=== PATIENT | male | born 1980 | race African-American/Black ===

== ENCOUNTER 2025-04-17 12:10 | Inpatient (IN) | payer OTHER, SELFPAY ==
[2025-04-17] VITALS (16 sets, daily range): BP systolic 119–146; BP diastolic 65–88; PULSE 96–109; RESP 12–18; TEMP 36.6–37.2; O2SAT 98–100; BMI 18.3
--- NOTE | ~2025-04-17 | XR_ITS ---
CHEST RADIOGRAPH CLINICAL HISTORY: DKA NAUSEA AND WEAKNESS NOTED . COMPARISON: None available TECHNIQUE: Single portable view of the chest. FINDINGS The cardiomediastinal silhouette is unremarkable. The lungs are clear. IMPRESSION: No focal infiltrate or effusion. Reviewed, dictated and finalized at location A.
--- NOTE | ~2025-04-17 | XR_ITS ---
XR foot LT 2V Ordering provider: Erica Bautista APRN History: . swelling to left toe . Comparison: None. FINDINGS: BONES: Destructive changes in the base of the distal phalanx of the left big toe which is suggestive of osteomyelitis. Clinical correlation advised. Sclerotic changes seen in the proximal phalanx of the fourth toe which also may indicate osteomyelitis. Further evaluation advised. JOINT SPACES: Narrowing of the interphalangeal joint of the big toe. No tarsal coalition. SOFT TISSUES: Soft tissue swelling over the distal phalanx of the left big toe. IMPRESSION: Osteomyelitis of the base of the distal phalanx of the big toe with fracture. Clinical correlation ad vised. Sclerotic changes in the proximal phalanx of the fourth toe which may indicate osteomyelitis. Narrowing of the interphalangeal joint of the first toe.. Reviewed, dictated and finalized at location A. IMPRESSION: Osteomyelitis of the base of the distal phalanx of the big toe with fracture. C linical correlation advised. Sclerotic changes in the proximal phalanx of the fourth toe which may indicate osteomyelitis. Narrowing of the interphalangeal joint of the first toe..
--- NOTE | ~2025-04-17 | MR_ITS ---
MRI of the left foot CLINICAL HISTORY: Possible osteomyelitis of the first and fourth toes. TECHNIQUE: Axial proton-density and proton-density fat-sat images, sagittal T1-weighted and STIR imag es, and coronal T1-weighted and proton-density fat-sat images were performed. FINDINGS: There is a transverse fracture of the proximal portion of the distal phalanx of the great t oe. There is surrounding marrow edema, as well as extensive marrow edema of the proximal phalanx of t he great toe. T1 marrow signal the proximal phalanx is relatively preserved. There is some mild hypoi ntense T1 signal in the distal phalanx. Remaining osseous structures and bone marrow signals are otherwise unremarkable remainder the visuali zed foot. Remaining joint spaces are intact. Collateral ligaments at the remaining joint spaces are i ntact. Flexor and extensor tendons are intact. No intermetatarsal bursitis or Anderson's neuroma evident. No o ther soft tissue mass or fluid collection seen. There are small joint effusion at the interphalangeal joint of the first toe. IMPRESSION: Transverse fracture the proximal portion of the distal phalanx of the great toe. Possible superimposed septic arthritis of the interphalangeal joint of the great toe with associated osteomyelitis of the proximal and distal phalanges. Correlate for posttraumatic joint effusion and gonzalez ne contusions. Correlate clinically for signs/symptoms of infection. Reviewed, dictated and finalized at [facility]. IMPRESSION: Transverse fracture the proximal portion of the distal phalanx of the great toe . Possible superimposed septic arthritis of the interphalangeal joint of the grea t toe with associated osteomyelitis of the proximal and distal phalanges. Corre late for posttraumatic joint effusion and bone contusions. Correlate clinically for signs/symptoms of infection.
--- NOTE | ~2025-04-17 | CT_ITS ---
Clinical Indication: DKA, fever, cough CT Scan of the Chest, Abdomen, and Pelvis without Contrast: Technique: Contiguous sections were acquired throughout the chest, abdomen, and pelvis without IV con trast administration. Dose reduction technique was used on this scan by utilizing automated exposure control and iterative reconstruction technique. The dose-length product (DLP) was 334.90 mGy-cm. Findings: There is no evidence of any significant mediastinal, hilar or axillary lymphadenopathy. The mediastin al soft tissues appear normal. There is no evidence of pleural or pericardial effusion. The lungs are clear. No pulmonary nodules or infiltrates are noted. The liver, spleen, gallbladder, adrenals and kidneys are within normal limits. Extensive pancreatic c alcifications compatible chronic pancreatitis. No evidence of aortic aneurysm. No lymphadenopathy. Questionable mild wall thickening of large bowel, especially at the distal descending colon. No bowel obstruction. No abscess or free air. Urinary bladder is unremarkable. No pelvic mass seen. No ascites. Impression: Questionable infectious/inflammatory colitis, especially the distal descending colon. Correlate clini olman. Chronic pancreatitis. Reviewed, dictated and finalized at [facility]. Impression: Questionable infectious/inflammatory colitis, especially the distal descending colon. Correlate clinically. Chronic pancreatitis.
--- NOTE | 2025-04-17 12:22 | ECG_ITS ---
Test Date: 2025-04-17 15:41:49 Measurements Intervals [place] Rate: 107 P: 76 [place]: 168 QRS: 55 QRSD: 85 T: 53 QT: 331 QTc: 443 Interpretive Statements SINUS TACHYCARDIA NONSPECIFIC T-WAVE ABNORMALITY No previous ECG available for comparison Electronically Signed On 04-18-2025 11:09:30 CDT by Ra Chapman M.D.
[2025-04-17 12:24] LABS: Glucose Point of Care > 500 mg/dl (65-105)
[2025-04-17 12:32] LABS: Basophils Absolute Auto 0.1 K/mm3 (0.0-0.1); Basophils Percent Auto 0.9 % (0.2-1.2); Eosinophils Absolute Auto 0.1 K/mm3 (0-0.3); Eosinophils Percent Auto 0.7 % (0-4.4); Hematocrit 35.1 % (42.0-52.0); Hemoglobin 11.1 g/dL (14.0-18.0); Immature Granulocyte Absolute 0.08 K/mm3 (0.00-0.031); Immature Granulocyte Percent A 0.7 % (0-0.5); Lymphocytes Absolute Auto 1.71 K/mm3 (0.9-3.2); Lymphocytes Percent Auto 14.4 % (18.3-44.2); Mean Corpuscular HGB Conc 31.6 g/dl (32-36); Mean Corpuscular Hemoglobin 29.7 pg (26-34); Mean Corpuscular Volume 93.9 fl (80-100); Mean Platelet Volume 9.4 fl (7.4-10.4); Monocytes Absolute Auto 0.8 K/mm3 (0.1-0.6); Monocytes Percent Auto 6.3 % (2.6-8.5); Neutrophils Absolute Auto 9.2 K/mm3 (1.3-6.7); Platelet Count Result 261 k/mm3 (150-375); Red Blood Count 3.74 M/mm3 (4.6-6.20); Red Cell Distribution Width 11.9 % (11.5-14.5); White Blood Count 11.9 K/mm3 (4.5-10.0)
[2025-04-17 12:40] LABS: Fractional Inspired Oxygen 21 %; HCO3 VBG 10.6 mEq/l (24.0-30.0); PO2 VBG 40.4 mmHg (35.0-45.0)
[2025-04-17 12:42] LABS: Device ROOM AIR; pH VBG 7.197 (7.300-7.400)
[2025-04-17 12:53] LABS: Alanine Aminotransferase 30 U/L (6-50); Albumin Level 4.9 g/dL (3.5-5.1); Alkaline Phosphatase 125 U/L (38-126); Anion Gap 32 mmol/L (4-12); Aspartate Amino Transferase 46 U/L (17-59); Bilirubin,Total 0.9 mg/dL (0.2-1.3); Blood Urea Nitrogen 30 mg/dL (9-20); Calcium 9.4 mg/dL (8.4-10.2); Carbon Dioxide 8 mmol/L (22-30); Chloride 88 mmol/L (98-107); Estimated Glomerular Filt Rate 33; Glucose 829 mg/dL (65-110); Magnesium 2.4 mg/dL (1.6-2.3); Phosphorus 6.4 mg/dL (2.5-4.5); Potassium 5.4 mmol/L (3.4-5.0); Sodium 128 mmol/L (137-145)
[2025-04-17] MEDS: SODIUM CHLORIDE 0.9% IV 3,000 ML 999 ML IV CONT (12:57)
[2025-04-17] MEDS: ONDANSETRON INJ 4 MG/2 ML VIAL IV PUSH (13:01)
[2025-04-17] MEDS: INSULIN HUMAN REGULAR (*BKC) 100 UNITS/ML 8.8 UNITS IV PUSH (13:09)
[2025-04-17 13:19] LABS: Ethanol < 10 mg/dL (<10)
[2025-04-17 13:29] LABS: Anion Gap 31 mmol/L (4-12); Blood Urea Nitrogen 31 mg/dL (9-20); Calcium 9.8 mg/dL (8.4-10.2); Carbon Dioxide 8 mmol/L (22-30); Chloride 88 mmol/L (98-107); Estimated CRCL calculation 32 ml/min; Estimated Glomerular Filt Rate 32; Glucose 830 mg/dL (65-110); Potassium 5.4 mmol/L (3.4-5.0); Sodium 127 mmol/L (137-145)
--- NOTE | 2025-04-17 13:29 | ED.GENADULT ---
HPI - General Adult General Chief complaint: Recheck/Abnormal Lab/Rx Stated complaint: abd pain, N/V, high BS Time Seen by Provider: 04/17/25 12:14 History of Present Illness HPI narrative: This is a 45-year-old male with history of type 1 diabetes presenting for elevated blood sugars. Patient said that last week he had fevers and a cough. Since then he has felt progressively worsened and his sugars have been up trending. He has been taking his insulin as instructed which is 25 long-acting Lantus night in 22 fast acting with meals. He is currently complaining of weakness, nausea, vomiting, diarrhea and abdominal pain. Related Data Allergies Allergy/AdvReac Type Severity Reaction Status Date / Time No Known Allergies Allergy Verified 04/17/25 12:57 [facility] [place] Past Medical History Medical History (Updated 04/17/25 @ 15:58 by Joe Arenas MD) Type I diabetes mellitus Exam Narrative: APPEARANCE: Patient appears uncomfortable Head: atraumatic. EYES: EOMI, NOSE: Atraumatic NECK: Trachea midline RESPIRATORY: tachypneic,clear to auscultation CARDIOVASCULAR: RRR, no peripheral edema ABDOMINAL: Non-distended soft nontender no guarding rebound MUSCULOSKELETAl: No obvious deformities NEURO: Alert. Moving 4/4 extremities SKIN:: Swelling without erythema or warmth to the left great toe. No breaks in the skin. No foul smell. No evidence of infection. PSYCHIATRIC: Normal affect Course Vital Signs Vital signs: Vital Signs Temperature 98.4 F 04/17/25 12:19 Blood Pressure 119/72 04/17/25 12:19 Pulse Oximetry 100 04/17/25 12:19 Temperature 98.5 F 04/17/25 13:46 Pulse Rate 109 H 04/17/25 12:47 Respiratory Rate 18 04/17/25 12:47 Blood Pressure 121/77 04/17/25 13:46 Pulse Oximetry 100 04/17/25 13:46 Oxygen Delivery Room Air 04/17/25 12:47 Medical Decision Making [facility] Narrative Medical decision making narrative: -Course:45-year-old type 1 diabetic presenting for DKA symptoms. Glucose Anion gap 31. PH 7.197. PH be 11.2. Patient started with 3 L normal saline and placed on 200 cc LR per hour. Initial potassium 5.4. Patient started on insulin drip per the DKA protocol set. Creatinine also elevated at 2.24 although we do not have a baseline. infectious workup: Chest x-ray clear. viral swabs negative. Skin exam normal. UA normal. CT chest abdomen pelvis showed clear lungs. Possibly colitis of the descending colon. Patient does report diarrhea. Started on ceftriaxone/Flagyl. C diff toxin sent. -DDX includes but is not limited to: DKA, viral illness, pneumonia, UTI medication noncompliance Vital Signs Vital Signs: Vital Signs Temperature 98.4 F 04/17/25 12:19 Blood Pressure 119/72 04/17/25 12:19 Pulse Oximetry 100 04/17/25 12:19 Temperature 98.5 F 04/17/25 13:46 Pulse Rate 109 H 04/17/25 12:47 Respiratory Rate 18 04/17/25 12:47 Blood Pressure 121/77 04/17/25 13:46 Pulse Oximetry 100 04/17/25 13:46 Oxygen Delivery Room Air 04/17/25 12:47 Lab Data 04/17/25 12:25 04/17/25 13:00 Labs: Lab Results 04/17/25 04/17/25 04/17/25 Range/Units 12:20 12:25 12:58 WBC 11.9 H (4.5-10.0) K/mm3 RBC 3.74 L (4.6-6.20) M/mm3 Hgb 11.1 L (14.0-18.0) g/dL Hct 35.1 L (42.0-52.0) % MCV 93.9 (80-100) fl MCH 29.7 (26-34) pg MCHC 31.6 L (32-36) g/dl RDW 11.9 (11.5-14.5) % Plt Count 261 (150-375) k/mm3 MPV 9.4 (7.4-10.4) fl Immature Gran % (Auto) 0.7 H (0-0.5) % Neut % (Auto) 77.0 H (45.5-73.1) % Lymph % (Auto) 14.4 L (18.3-44.2) % [place] % (Auto) 6.3 (2.6-8.5) % Eos % (Auto) 0.7 (0-4.4) % Baso % (Auto) 0.9 (0.2-1.2) % Lymph # (Auto) 1.71 (0.9-3.2) K/mm3 [place] # (Auto) 0.8 H (0.1-0.6) K/mm3 Eos # (Auto) 0.1 (0-0.3) K/mm3 Baso # (Auto) 0.1 (0.0-0.1) K/mm3 Abs Immat Gran (auto) 0.08 H (0.00-0.031) K/mm3 Absolute Neuts (auto) 9.2 H (1.3-6.7) K/mm3 Absolute Nucleated RBC 0.000 (0.0-0.012) K/mm3 Nucleated RBC % 0.0 (0.0-0.2) % Sodium 128 L (137-145) mmol/L Potassium 5.4 H (3.4-5.0) mmol/L Chloride 88 L (98-107) mmol/L Carbon Dioxide 8 L (22-30) mmol/L Anion Gap 32 H (4-12) mmol/L BUN 30 H (9-20) mg/dL Creatinine 2.17 H (0.7-1.3) mg/dL Estim Creat Clear Calc Not Reportable Estimated GFR 33 L (59 - ) Glucose 829 H* (65-110) mg/dL POC Capillary Glucose > 500 H* (65-105) mg/dl Hemoglobin A1c (<5.7) % Calcium 9.4 (8.4-10.2) mg/dL Phosphorus 6.4 H (2.5-4.5) mg/dL Magnesium 2.4 H (1.6-2.3) mg/dL Total Bilirubin 0.9 (0.2-1.3) mg/dL AST 46 (17-59) U/L ALT 30 (6-50) U/L Alkaline Phosphatase 125 (38-126) U/L Total Protein 8.0 (6.3-8.2) g/dL Albumin 4.9 (3.5-5.1) g/dL Beta-Hydroxybutyrate/Acetoacetate 11.20 H (0.02-0.27) mmol/L Ethyl Alcohol < 10 (<10) mg/dL Influenza A (RT-PCR) (Negative) Influenza B (RT-PCR) (Negative) RSV (RT-PCR) (Negative) SARS-CoV-2 RNA (RT-PCR) (Negative) 04/17/25 04/17/25 Range/Units 12:59 13:00 WBC (4.5-10.0) K/mm3 RBC (4.6-6.20) M/mm3 Hgb (14.0-18.0) g/dL Hct (42.0-52.0) % MCV (80-100) fl MCH (26-34) pg MCHC (32-36) g/dl RDW (11.5-14.5) % Plt Count (150-375) k/mm3 MPV (7.4-10.4) fl Immature Gran % (Auto) (0-0.5) % Neut % (Auto) (45.5-73.1) % Lymph % (Auto) (18.3-44.2) % [place] % (Auto) (2.6-8.5) % Eos % (Auto) (0-4.4) % Baso % (Auto) (0.2-1.2) % Lymph # (Auto) (0.9-3.2) K/mm3 [place] # (Auto) (0.1-0.6) K/mm3 Eos # (Auto) (0-0.3) K/mm3 Baso # (Auto) (0.0-0.1) K/mm3 Abs Immat Gran (auto) (0.00-0.031) K/mm3 Absolute Neuts (auto) (1.3-6.7) K/mm3 Absolute Nucleated RBC (0.0-0.012) K/mm3 Nucleated RBC % (0.0-0.2) % Sodium 127 L (137-145) mmol/L Potassium 5.4 H (3.4-5.0) mmol/L Chloride 88 L (98-107) mmol/L Carbon Dioxide 8 L (22-30) mmol/L Anion Gap 31 H (4-12) mmol/L BUN 31 H (9-20) mg/dL Creatinine 2.24 H (0.7-1.3) mg/dL Estim Creat Clear Calc 32 Estimated GFR 32 L (59 - ) Glucose 830 H* (65-110) mg/dL POC Capillary Glucose (65-105) mg/dl Hemoglobin A1c 12.4 H (<5.7) % Calcium 9.8 (8.4-10.2) mg/dL Phosphorus (2.5-4.5) mg/dL Magnesium (1.6-2.3) mg/dL Total Bilirubin (0.2-1.3) mg/dL AST (17-59) U/L ALT (6-50) U/L Alkaline Phosphatase (38-126) U/L Total Protein (6.3-8.2) g/dL Albumin (3.5-5.1) g/dL Beta-Hydroxybutyrate/Acetoacetate (0.02-0.27) mmol/L Ethyl Alcohol (<10) mg/dL Influenza A (RT-PCR) Negative (Negative) Influenza B (RT-PCR) Negative (Negative) RSV (RT-PCR) Negative (Negative) SARS-CoV-2 RNA (RT-PCR) Negative (Negative) ABG Data ABG results: 04/17/25 12:38 VBG pH 7.197 L* VBG pCO2 28.0 L* VBG pO2 40.4 VBG HCO3 10.6 L O2 Delivery Device Room air O2 Liters/Min Not Reportable FiO2 21 Critical Care Time Critical Care Time Critical Care Time: Yes Total Critical Care Time: 35 Discharge Plan Discharge Clinical Impression: DKA (diabetic ketoacidosis) Patient Disposition: Still a Patient Condition: Serious Patient Language: Slovenian Follow-up/Referrals: UNKNOWN,DOCTOR [Primary Care Provider] -
[2025-04-17] MEDS: INSULIN HUMAN REGULAR (*BKC) 100 UNITS in SODIUM CHLORIDE 0.9% IV 99 ML 5.5 UNITS IV CONT (13:38)
[2025-04-17 13:47] LABS: Influenza A QL RT-PCR Negative (Negative); Influenza B QL RT-PCR Negative (Negative); RSV RNA, RT-PCR Negative (Negative); SARS-CoV-2 RNA PCR Negative (Negative)
[2025-04-17 13:48] LABS: Hemoglobin A1C 12.4 % (<5.7)
[2025-04-17] MEDS: LACTATED RINGERS 1,000 ML 200 ML IV CONT (13:51)
[2025-04-17 14:39] LABS: Glucose Point of Care 489 mg/dl (65-105)
[2025-04-17 14:52] LABS: Add Urine Microscopic? YES; Appearance Urine Clear (Clear); Bacteria Urine None Seen /hpf; Bilirubin Urine Negative (Negative); Blood Urine Trace (Negative); Color Urine Yellow (Yellow); Glucose Urine UA 3+ mg/dL (Negative); Ketones Urine 3+ mg/dL (Negative); Leukocyte Esterase Ur Negative LEU/UL (Negative); Nitrate Urine Negative (Negative); Non Pathogenic Casts 0-2; Protein Urine Trace mg/dL (Negative); RBC Urine 0-2 /hpf (0-2); Specific Grav Ur 1.022 (1.001-1.035); Squamous Epithelial Cell Urine None Seen /hpf (Few); Urobilinogen Urine 0.2 mg/dL (<2.0); WBC Urine 0-5 /hpf (0-3)
[2025-04-17 14:56] LABS: Anion Gap 26 mmol/L (4-12); Blood Urea Nitrogen 29 mg/dL (9-20); Calcium 8.5 mg/dL (8.4-10.2); Carbon Dioxide 8 mmol/L (22-30); Chloride 100 mmol/L (98-107); Estimated CRCL calculation 38 ml/min; Estimated Glomerular Filt Rate 39; Glucose 598 mg/dL (65-110); Potassium 3.9 mmol/L (3.4-5.0); Sodium 134 mmol/L (137-145)
[2025-04-17 15:06] LABS: Amphetamine Screen Urine Negative (Negative); Barbiturate Screen Urine Negative (Negative); Benzodiazepines Screen Urine Negative (Negative); Cannabinoid Screen Urine Positive (Negative); Cocaine Screen Urine Negative (Negative); Methadone Screen Urine Negative (Negative); Opiate Screen Urine Negative (Negative); Phencyclidine Screen Urine Negative (Negative)
[2025-04-17] MEDS: metroNIDAZOLE 500 MG/ISO 100ML 500 MG/100 ML BAG 100 MG IVPB ×2 (15:26→21:35)
[2025-04-17 15:37] LABS: Glucose Point of Care 461 mg/dl (65-105)
--- NOTE | 2025-04-17 16:28 | PM.IMHP ---
H&P: HPI History of Present Illness Date/Time: 04/17/25 16:28 Chief Complaint: Nausea, Vomiting. Hyperglycemia Narrative: 45 y/o M with PMH of DM1, DKA and chronic pancreatitis Presents here with nausea, vomiting, diarrhea, and hyperglycemia. The patient presents here [facility] EMS on 04/17 for further evaluation of nausea, vomiting, diarrhea, hyperglycemia, and abdominal pain. He reports he initially developed nausea and vomiting 2 days ago, however this was precipitated by general malaise, fevers, and a productive cough (scant, intermittent) for the past 1-2 weeks. Since onset of the symptoms his home glucose measurements have been up trending. He reports compliance with his diabetes regimen: Lantus 18 units subQ HS and has Lispro as a sliding scale. He currently follows with Gerardo BAUER (PCP) for his diabetes care. Patient also reported abdominal pain and diarrhea. He reports this has been ongoing for the past few days. He describes the abdominal pain as left lower quadrant, nonradiating, and is intermittent. Patient also is reporting swelling and pain to his first left toe. Has been ongoing for 1 week. No precipitating trauma. Initial VS at presentation: 98.4? F, HR 109, RR 18, 119/72, and 100% on RA. ED workup showed: WBC 11.9, hemoglobin 11.1, VBG showed a pH of 7.197, sodium 128, potassium 5.4, creatinine 2.17 and GFR 33, initial glucose 829, A1c 12.4%, phosphorus 6.4, magnesium 2.4, beta hydroxy 11.2. CXR showed no focal infiltrate or effusion. CT of the chest/abdomen/pelvis showed questionable infectious/inflammatory colitis especially the distal descending colon, and chronic pancreatitis. Review of Systems Review of Systems: All systems reviewed & are unremarkable except as noted in HPI and below PMFSH Past Medical History Medical History Chronic pancreatitis Type I diabetes mellitus Social History Social History Smoking packs per day: 0.5 Smoking cigarettes per day: 10.0 Smoking status: Current every day smoker Substance use type: does not use Do You Feel Safe in your Home?: Yes Lack of Transportation: No Lack of Food: Sometimes True Current Housing: I Have Housing Concerned About Future Housing: YES Difficulty Paying Gas/Electric Bills: No Difficulty Paying for Meds: No Currently Unemployed: No Education: Decline to Answer Difficulty w/ Childcare or Family Care: No Spiritual care concerns: No Meds Home Medications and Allergies Home Medications ?Medication ?Instructions ?Recorded ?Confirmed ?Type amlodipine 10 mg tablet 10 mg PO DAILY 04/17/25 04/17/25 History atorvastatin 40 mg tablet 40 mg PO HS 04/17/25 04/17/25 History carvedilol 25 mg tablet 25 mg PO BID 04/17/25 04/17/25 History famotidine 20 mg tablet 20 mg PO BID 04/17/25 04/17/25 History gabapentin 100 mg capsule 100 mg PO TID 04/17/25 04/17/25 History insulin glargine 100 unit/mL (3 18 unit subcut HS 04/17/25 04/17/25 History mL) subcutaneous pen (Lantus Solostar U-100 Insulin) insulin lispro 100 unit/mL 1 sliding scale dose subcut TIDWM 04/17/25 04/17/25 History subcutaneous pen (Humalog KwikPen (U-100) Insulin) Allergies Allergy/AdvReac Type Severity Reaction Status Date / Time No Known Allergies Allergy Verified 04/17/25 12:57 Vital Signs Vital Signs - 24 hr 04/17/25 12:19 04/17/25 12:47 04/17/25 13:01 Temperature 98.4 F 98.9 F 98.7 F Pulse Rate 109 H Respiratory Rate 18 Blood Pressure 119/72 133/78 123/65 Pulse Oximetry 100 98 100 Oxygen Delivery Room Air 04/17/25 13:46 04/17/25 14:48 Temperature 98.5 F 97.9 F Pulse Rate 105 H Respiratory Rate 16 Blood Pressure 121/77 129/76 Pulse Oximetry 100 100 Oxygen Delivery Exam Const: General: comfortable and no acute distress Other: , male, ill-appearing HENMT: Face/Nose/Sinus: Normal nares present Mouth: Yes dry mucous membranes Eyes: General: appearance normal, both eyes and all related structures Sclera: sclerae normal Pupils: Equal, round and reactive pupils present EOM: EOMs intact bilaterally Resp: Effort & Inspection: normal respiratory effort Auscultation: clear to auscultation bilaterally Cardio: Rate: regular rate Rhythm: regular rhythm Other: S1-S2 present without murmur, rub, ectopy GI: Other: Abdomen soft, nondistended, nontender. Normoactive bowel sounds in all quadrants. Skin: General skin exam: normal color and no rashes or lesions noted Wounds: no wounds Neuro: Speech: normal speech Motor exam (neuro): 5/5 motor strength present throughout Sensory Exam: normal sensation Other: A&O x4 Extrem: Other: No peripheral edema. Swelling to left greater toe without signs of infection or wound openings/evidence of insect bite. Psych: Mental Status: mental status grossly normal Affect: normal affect Other: Good insight and judgment, very pleasant H&P: Results Labs Labs: Short CBC 04/17/25 Range/Units 12:25 WBC 11.9 H (4.5-10.0) K/mm3 Hgb 11.1 L (14.0-18.0) g/dL Hct 35.1 L (42.0-52.0) % Plt Count 261 (150-375) k/mm3 BMP 04/17/25 04/17/25 04/17/25 12:25 13:00 14:31 Sodium 128 L 127 L 134 L Potassium 5.4 H 5.4 H 3.9 Chloride 88 L 88 L 100 Carbon Dioxide 8 L 8 L 8 L BUN 30 H 31 H 29 H Creatinine 2.17 H 2.24 H 1.90 H Glucose 829 H* 830 H* 598 H* Calcium 9.4 9.8 8.5 Liver Function 04/17/25 Range/Units 12:25 Total Bilirubin 0.9 (0.2-1.3) mg/dL AST 46 (17-59) U/L ALT 30 (6-50) U/L Alkaline Phosphatase 125 (38-126) U/L Albumin 4.9 (3.5-5.1) g/dL Urine 04/17/25 Range/Units 14:31 Urine Color Yellow (Yellow) Urine Appearance Clear (Clear) Urine pH 5.0 (5.0-9.0) Ur Specific [place] 1.022 (1.001-1.035) Urine Protein Trace (Negative) mg/dL Urine Glucose (UA) 3+ H (Negative) mg/dL Assessment and Plan Assessment and plan (1) DKA (diabetic ketoacidosis): Qualifiers: Diabetes mellitus complication detail: without coma Diabetes mellitus type: type 1 Qualified Code(s): E10.10 - Type 1 diabetes mellitus with ketoacidosis without coma Code(s): E11.10 - Type 2 diabetes mellitus with ketoacidosis without coma Status: Acute Assessment and Plan: - history of type 1 diabetes - initial glucose 829, verified 830 - labs: K 5.4 (repeat 3.9), A1c 12.4%, beta hydroxy 11.2, VBG showed a pH of 7.197 - trend BMP Q4H, repeat Mag and Phos - DKA protocol initiated - IV fluids: given 3L in ED. Now on 150 mL/hr of NS. Monitor I&Os. - insulin gtt currently running at 5 u/hr - NPO with ice chips - hold home medications - nurses' association counselor consulted - roll scale worker consulted - rubbish collection supervisor consulted (2) Type I diabetes mellitus: Qualifiers: Diabetes mellitus complication detail: without coma Diabetes mellitus complication status: with ketoacidosis Qualified Code(s): E10.10 - Type 1 diabetes mellitus with ketoacidosis without coma Code(s): E10.9 - Type 1 diabetes mellitus without complications Status: Chronic Assessment and Plan: - see above, currently complicated by DKA (3) ROM (acute kidney injury): Code(s): N17.9 - Acute kidney failure, unspecified Status: Acute Assessment and Plan: - creatinine 2.17 and GFR 33, no previous available for comparison. However no history of CKD. - suspect kidney injury secondary to hypovolemia. Has improved to 1.53 with IV fluids. - trend renal function - trend electrolytes, correct as needed (4) Colitis: Code(s): K52.9 - Noninfective gastroenteritis and colitis, unspecified Status: Acute Assessment and Plan: - CT chest/abdomen/pelvis: Questionable infectious/inflammatory colitis, especially the distal descending colon. Correlate clinically. Chronic pancreatitis. - check c. diff, stool culture, and lipase - started on ceftriaxone and Flagyl on 04/17 (5) Toe pain, left: Code(s): M79.675 - Pain in left toe(s) Status: Acute Assessment and Plan: - reporting will left greater toe pain x1 week. Denies history of gout. Denies precipitating trauma. - obtained foot XR - high suspicion for gout Plan Patient reporting mild headache this evening, will treat with 1 time dose of Compazine and IV Benadryl. Not candidate for Toradol as he has an ROM. Has been receiving IV fluids. Diet: NPO with ice chips GI Prophylaxis: pantoprazole AV DVT Prophylaxis: SCDs IV fluids: NS at 150 mL/hour Lines/Tubes: peripheral IV Code Status: full code Quality VTE Prophylaxis VTE prophylaxis: mechanical ordered Critical Care Time: I personally spent 35 minutes of direct patient care including (but not limited to) the physical examination, decision-making, bedside evaluation, review of medical records, review of labs and imaging, discussion with nursing staff and other providers for collaborative, critical care management of this patient. Hospitalist [facility] Advance Care Plan I have confirmed that the patient's Advanced Care Plan is present, code status is documented, or surrogate decision maker is listed in patient medical record.: Yes Medication Reconciliation I have utilized all available resources to obtain, update and review the patients current medications (includes all prescriptions, OTC, herbals, cannabis, and nutritional supplements).: Yes
--- NOTE | 2025-04-17 16:37 | PC.NURSE ---
This patient, Isauro Celeste, was admitted to Intensive Care Unit-9. Patient/family oriented to hospital policies and general routines including ID bracelet, bed and alarms, visiting hours, pain management, procedures, bathroom and other care routines, personal items, smoking policy, room service/diet, and visiting hours. Information on how to activate the Rapid Response Team has been discussed. Patient/Family are encouraged to report perceived risks to care and to ask questions if they do not understand what they are told or what they should do.
[2025-04-17 16:48] LABS: Glucose Point of Care 353 mg/dl (65-105)
[2025-04-17] MEDS: SODIUM CHLORIDE 0.9% IV 1,000 ML 150 ML IV CONT (16:48)
[2025-04-17 17:37] LABS: Glucose Point of Care 297 mg/dl (65-105)
[2025-04-17 18:40] LABS: Glucose Point of Care 219 mg/dl (65-105)
[2025-04-17] MEDS: KCL 20 MEQ/D5/0.45% SOD CHL 1,000 ML 150 ML IV CONT (18:41)
[2025-04-17 19:21] LABS: Glucose Point of Care 198 mg/dl (65-105)
[2025-04-17 20:02] LABS: Anion Gap 13 mmol/L (4-12); Blood Urea Nitrogen 26 mg/dL (9-20); Calcium 8.8 mg/dL (8.4-10.2); Carbon Dioxide 19 mmol/L (22-30); Chloride 106 mmol/L (98-107); Estimated CRCL calculation 50 ml/min; Estimated Glomerular Filt Rate 50; Glucose 187 mg/dL (65-110); Lipase 826 U/L (23-300); Phosphorus 3.3 mg/dL (2.5-4.5); Sodium 138 mmol/L (137-145)
[2025-04-17 20:13] LABS: MRSA (PCR) NOT DETECTED (NOT DETECTE)
[2025-04-17 20:23] LABS: Glucose Point of Care 166 mg/dl (65-105)
[2025-04-17 21:24] LABS: Glucose Point of Care 165 mg/dl (65-105)
[2025-04-17] MEDS: carvediloL 25 MG TABLET PO (21:34)
[2025-04-17] MEDS: ATORVASTATIN 40 MG TABLET PO (21:34)
[2025-04-17] MEDS: ACETAMINOPHEN 325 MG TABLET 650 MG PO (21:34)
[2025-04-17] MEDS: diphenhydrAMINE HCl INJ 50 MG/ML VIAL 25 MG IV PUSH (21:35)
[2025-04-17] MEDS: PROCHLORPERAZINE EDISYLATE 10 MG/2 ML VIAL IV PUSH (21:35)
[2025-04-17 22:28] LABS: Glucose Point of Care 122 mg/dl (65-105)
[2025-04-17 23:37] LABS: Glucose Point of Care 113 mg/dl (65-105)
[2025-04-17 23:46] LABS: Anion Gap 7 mmol/L (4-12); Blood Urea Nitrogen 24 mg/dL (9-20); Calcium 8.5 mg/dL (8.4-10.2); Carbon Dioxide 21 mmol/L (22-30); Chloride 107 mmol/L (98-107); Estimated CRCL calculation 56 ml/min; Estimated Glomerular Filt Rate 57; Glucose 110 mg/dL (65-110); Potassium 3.9 mmol/L (3.4-5.0); Sodium 135 mmol/L (137-145)
[2025-04-18] VITALS (12 sets, daily range): BP systolic 112–149; BP diastolic 72–93; PULSE 84–93; RESP 12–18; TEMP 36.2–37.1; O2SAT 100; BMI 18.3
[2025-04-18] MEDS: INSULIN GLARGINE (*BKC) 100 UNITS/ML 17 UNITS SUB-Q ×2 (00:15→21:17)
[2025-04-18 00:22] LABS: Glucose Point of Care 108 mg/dl (65-105)
[2025-04-18] MEDS: CEFEPIME 2 GM/NS 50 ML 2 GM/50 ML BAG IVPB ×3 (00:52→21:02)
[2025-04-18 01:28] LABS: Glucose Point of Care 121 mg/dl (65-105)
[2025-04-18] MEDS: VANCOMYCIN 1,500 MG/NS 500 ML 1,500 MG/500 ML BAG 250 MG IVPB (01:30)
[2025-04-18 03:54] LABS: Basophils Absolute Auto 0.1 K/mm3 (0.0-0.1); Basophils Percent Auto 0.6 % (0.2-1.2); Eosinophils Absolute Auto 0.3 K/mm3 (0-0.3); Hematocrit 27.9 % (42.0-52.0); Immature Granulocyte Absolute 0.05 K/mm3 (0.00-0.031); Immature Granulocyte Percent A 0.4 % (0-0.5); Lymphocytes Absolute Auto 2.95 K/mm3 (0.9-3.2); Lymphocytes Percent Auto 23.5 % (18.3-44.2); Mean Corpuscular HGB Conc 32.3 g/dl (32-36); Mean Corpuscular Hemoglobin 29.8 pg (26-34); Mean Corpuscular Volume 92.4 fl (80-100); Monocytes Absolute Auto 0.9 K/mm3 (0.1-0.6); Monocytes Percent Auto 7.4 % (2.6-8.5); Neutrophils Absolute Auto 8.3 K/mm3 (1.3-6.7); Neutrophils Percent Auto 66.1 % (45.5-73.1); Platelet Count Result 205 k/mm3 (150-375); Red Blood Count 3.02 M/mm3 (4.6-6.20); White Blood Count 12.6 K/mm3 (4.5-10.0)
[2025-04-18 04:03] LABS: Lipase 421 U/L (23-300)
[2025-04-18 04:05] LABS: Alanine Aminotransferase 17 U/L (6-50); Albumin Level 3.5 g/dL (3.5-5.1); Alkaline Phosphatase 74 U/L (38-126); Anion Gap 10 mmol/L (4-12); Aspartate Amino Transferase 24 U/L (17-59); Bilirubin,Total 0.5 mg/dL (0.2-1.3); Blood Urea Nitrogen 22 mg/dL (9-20); Calcium 8.6 mg/dL (8.4-10.2); Carbon Dioxide 19 mmol/L (22-30); Chloride 108 mmol/L (98-107); Estimated CRCL calculation 57 ml/min; Estimated Glomerular Filt Rate 59; Glucose 95 mg/dL (65-110); Sodium 137 mmol/L (137-145)
[2025-04-18 04:06] LABS: Phosphorus 3.1 mg/dL (2.5-4.5)
[2025-04-18] MEDS: metroNIDAZOLE 500 MG/ISO 100ML 500 MG/100 ML BAG 100 MG IVPB ×3 (06:43→21:59)
[2025-04-18 07:11] LABS: Glucose Point of Care 98 mg/dl (65-105)
--- NOTE | 2025-04-18 09:11 | P.CONIN_ITS ---
Assessment and Plan Assessment and plan (1) DKA (diabetic ketoacidosis): Qualifiers: Diabetes mellitus complication detail: without coma Diabetes mellitus type: type 1 Qualified Code(s): E10.10 - Type 1 diabetes mellitus with ketoacidosis without coma Code(s): E11.10 - Type 2 diabetes mellitus with ketoacidosis without coma Status: Acute Assessment and Plan: 04/17: Patient presented with nausea, vomiting, diarrhea, abdominal pain, initial glucose was 829, anion gap of 32, elevated beta hydroxybutyrate 11.20, UA showed positive ketones and glucose -Chest x-ray with no focal infiltrates diffuse. CT chest, abdomen and pelvis showed questionable infectious/inflammatory colitis especially the distal descending colon, chronic pancreatitis. -Patient was started on cefepime, Flagyl and vancomycin. - Patient was given 3 L IV fluid bolus, started on insulin infusion per DKA protocol -patient was transition overnight to Lantus and sliding scale insulin -hemoglobin A1c this admission is 12.4 -continue with diabetic diet (2) ROM (acute kidney injury): Code(s): N17.9 - Acute kidney failure, unspecified Status: Acute Assessment and Plan: Acute kidney injury likely related to hypovolemia, anti emetic ketoacidosis, diarrhea -patient adequately fluid-resuscitated, -urine output and creatinine improving -continue to monitor (3) Toe pain, left: Code(s): M79.675 - Pain in left toe(s) Status: Acute Assessment and Plan: Left back to pain, swelling 04/16: X-ray left foot: Osteomyelitis of the base of the distal phalanx of the big toe with fracture. Clinical correlation advised. Sclerotic changes in the proximal phalanx of the fourth toe which may indicate osteomyelitis. Narrowing of the interphalangeal joint of the first toe. MRI of the left foot has been ordered -will consult orthopedics (4) Colitis: Code(s): K52.9 - Noninfective gastroenteritis and colitis, unspecified Status: Acute Assessment and Plan: Likely related to diabetes ketoacidosis -abdominal pain has resolved Plan DVT prophylaxis: Lovenox Stress ulcer prophylaxis: Not indicated Nutrition: Diabetic diet Code Status: Full code Critical Care Time Spent: 47 minutes Due to a high probability of clinically significant, life threatening deterioration, the patient required my highest level of preparedness to intervene emergently and I personally spent this critical care time directly and personally managing the patient. This critical care time included obtaining a history; examining the patient; pulse oximetry; ordering and review of studies; arranging urgent treatment with development of a management plan; evaluation of patient's response to treatment; frequent reassessment; and discussions with other providers. It was exclusive of separately billable procedures and treating other patients and teaching time. Please see Assessment and Plan section and the rest of the note for further information on patient assessment and treatment This dictation may have been done utilizing a voice recognition system. Attempts have been made to correct errors. However, there may be uncorrected grammatical, spelling, and recognitions errors present. [employer]or[employer] Operator Consult Note Consult date: 04/18/25 Reason for consult: Diabetic ketoacidosis, nausea, vomiting, diarrhea, abdominal pain HPI: Isauro Celeste is a 45 year old male with past medical history of insulin- dependent diabetes type 1, chronic pancreatitis presented the ED on 04/17/2025 with complains of nausea, vomiting, diarrhea, hyperglycemia, abdominal pain with started about 2 days ago. He also complained of general malaise, fevers and a productive cough for the past 1-2 weeks. According to him he does take his insulin regularly. Abdominal pain is left lower quadrant, nonradiating, intermittent. Also complains of swelling and pain of the left big toe. In the ER patient's hemoglobin was 11.1, WBC count 11.9. VBG showed pH of 7.197. Sodium 128, potassium 5.4, creatinine 2.17, initial glucose was 829, hemoglobin A1c was 12.4. Beta hydroxybutyrate was 11.2. Urinalysis was positive for 3+ glucose and 3+ ketones. Chest x-ray with no focal infiltrates diffuse. CT chest, abdomen and pelvis showed questionable infectious/inflammatory colitis especially the distal descending colon, chronic pancreatitis. Patient was started on cefepime, Flagyl and vancomycin. Patient was given 3 L IV fluid bolus, started on insulin infusion per DKA protocol and transferred to the ICU for further management. Patient seen and examined this morning in the ICU, is awake, alert, was transition to long-acting insulin and sliding scale insulin. States he feels much better, denies any nausea, vomiting, diarrhea. Abdominal pain much improved. Patient states he drinks 1 beer 3 to 4 times a week, smokes half a pack of cigarettes, denies any marijuana, methamphetamine, cocaine or other illicit drug use. Review of Systems 2 Review of Systems: All systems reviewed & are unremarkable except as noted in HPI and below PMFSH Past Medical History Medical History Chronic pancreatitis Type I diabetes mellitus Social History Social History Smoking packs per day: 0.5 Smoking cigarettes per day: 10.0 Smoking status: Current every day smoker Substance use type: does not use Do You Feel Safe in your Home?: Yes Lack of Transportation: No Lack of Food: Sometimes True Current Housing: I Have Housing Concerned About Future Housing: YES Difficulty Paying Gas/Electric Bills: No Difficulty Paying for Meds: No Currently Unemployed: No Education: Decline to Answer Difficulty w/ Childcare or Family Care: No Spiritual care concerns: No Meds Home Medications and Allergies Home Medications ?Medication ?Instructions ?Recorded ?Confirmed ?Type amlodipine 10 mg tablet 10 mg PO DAILY 04/17/25 04/17/25 History atorvastatin 40 mg tablet 40 mg PO HS 04/17/25 04/17/25 History carvedilol 25 mg tablet 25 mg PO BID 04/17/25 04/17/25 History famotidine 20 mg tablet 20 mg PO BID 04/17/25 04/17/25 History gabapentin 100 mg capsule 100 mg PO TID 04/17/25 04/17/25 History insulin glargine 100 unit/mL (3 18 unit subcut HS 04/17/25 04/17/25 History mL) subcutaneous pen (Lantus Solostar U-100 Insulin) insulin lispro 100 unit/mL 1 sliding scale dose subcut TIDWM 04/17/25 04/17/25 History subcutaneous pen (Humalog KwikPen (U-100) Insulin) Allergies Allergy/AdvReac Type Severity Reaction Status Date / Time No Known Allergies Allergy Verified 04/17/25 12:57 Vital Signs Vital Signs - 24 hr 04/17/25 12:19 04/17/25 12:47 04/17/25 13:01 Temperature 98.4 F 98.9 F 98.7 F Pulse Rate 109 H Respiratory Rate 18 Blood Pressure 119/72 133/78 123/65 Pulse Oximetry 100 98 100 Oxygen Delivery Room Air Fraction of Inspired Oxygen 04/17/25 13:46 04/17/25 14:48 04/17/25 16:49 Temperature 98.5 F 97.9 F 98.3 F Pulse Rate 105 H 106 H Respiratory Rate 16 13 Blood Pressure 121/77 129/76 145/88 H Pulse Oximetry 100 100 100 Oxygen Delivery Fraction of Inspired Oxygen 04/17/25 16:51 04/17/25 17:49 04/17/25 18:00 Temperature 98.2 F Pulse Rate 102 H 101 H Respiratory Rate 18 Blood Pressure 126/88 Pulse Oximetry 99 100 Oxygen Delivery Room Air Fraction of Inspired Oxygen 04/17/25 18:00 04/17/25 18:31 04/17/25 18:40 Temperature 98.4 F Pulse Rate 102 H Respiratory Rate 12 Blood Pressure 135/85 Pulse Oximetry 100 Oxygen Delivery Room Air Fraction of Inspired Oxygen 04/17/25 19:51 04/17/25 19:53 04/17/25 20:00 Temperature 98.1 F Pulse Rate 102 H 102 H 99 Respiratory Rate 16 18 Blood Pressure 146/84 H Pulse Oximetry 100 98 Oxygen Delivery Room Air Fraction of Inspired Oxygen 04/17/25 20:19 04/17/25 21:34 04/17/25 22:00 Temperature Pulse Rate 99 102 H 96 Respiratory Rate 12 Blood Pressure Pulse Oximetry 100 Oxygen Delivery Room Air Fraction of Inspired Oxygen 04/17/25 22:00 04/18/25 00:00 04/18/25 00:00 Temperature Pulse Rate 96 85 85 Respiratory Rate 12 12 Blood Pressure 126/78 Pulse Oximetry 100 100 Oxygen Delivery Room Air Fraction of Inspired Oxygen 21 04/18/25 00:00 04/18/25 02:00 04/18/25 02:00 Temperature 98.7 F 98.3 F Pulse Rate 85 84 84 Respiratory Rate 12 12 Blood Pressure 120/77 112/80 Pulse Oximetry 100 100 Oxygen Delivery Fraction of Inspired Oxygen 04/18/25 03:47 04/18/25 03:48 04/18/25 04:00 Temperature 98.2 F Pulse Rate 84 84 86 Respiratory Rate 12 12 Blood Pressure 116/72 Pulse Oximetry 100 100 Oxygen Delivery Room Air Fraction of Inspired Oxygen 21 04/18/25 06:00 04/18/25 06:00 04/18/25 08:00 Temperature 98.3 F 98.4 F Pulse Rate 90 90 90 Respiratory Rate 12 12 Blood Pressure 121/78 124/79 Pulse Oximetry Oxygen Delivery Fraction of Inspired Oxygen 04/18/25 08:00 04/18/25 08:00 04/18/25 08:13 Temperature Pulse Rate 91 Respiratory Rate Blood Pressure Pulse Oximetry 100 100 Oxygen Delivery Room Air Fraction of Inspired Oxygen Exam 2 Narrative: General: Pleasant gently and in no acute distress HEENT:? Pupils equal and reactive, sclera is clear, moist oral mucosa Neck:? Supple Respiratory:? Clear to auscultation bilaterally Cardiac:? S1-S2, regular rate and rhythm Abdomen:? Soft, nontender, nondistended, normoactive bowel sounds Extremities:? Left big toe is swollen, warm, tender, palpable pedal pulses bilaterally Neuro:? Patient is awake, alert, oriented, nonfocal Skin:? No skin lesions noted Psych:? Normal mentation and affect Results Labs 04/18/25 03:43 04/18/25 03:43 Labs: Short CBC 04/17/25 04/18/25 Range/Units 12:25 03:43 WBC 11.9 H 12.6 H (4.5-10.0) K/mm3 Hgb 11.1 L 9.0 L (14.0-18.0) g/dL Hct 35.1 L 27.9 L (42.0-52.0) % Plt Count 261 205 (150-375) k/mm3 BMP 04/17/25 04/17/25 04/17/25 12:25 13:00 14:31 Sodium 128 L 127 L 134 L Potassium 5.4 H 5.4 H 3.9 Chloride 88 L 88 L 100 Carbon Dioxide 8 L 8 L 8 L BUN 30 H 31 H 29 H Creatinine 2.17 H 2.24 H 1.90 H Glucose 829 H* 830 H* 598 H* Calcium 9.4 9.8 8.5 04/17/25 04/17/25 04/18/25 19:37 23:28 03:43 Sodium 138 135 L 137 Potassium 4.0 3.9 4.0 Chloride 106 107 108 H Carbon Dioxide 19 L 21 L 19 L BUN 26 H 24 H 22 H Creatinine 1.53 H 1.37 H 1.33 H Glucose 187 H 110 95 Calcium 8.8 8.5 8.6 Liver Function 04/17/25 04/18/25 Range/Units 12:25 03:43 Total Bilirubin 0.9 0.5 (0.2-1.3) mg/dL AST 46 24 (17-59) U/L ALT 30 17 (6-50) U/L Alkaline Phosphatase 125 74 (38-126) U/L Albumin 4.9 3.5 (3.5-5.1) g/dL Urine 04/17/25 Range/Units 14:31 Urine Color Yellow (Yellow) Urine Appearance Clear (Clear) Urine pH 5.0 (5.0-9.0) Ur Specific [place] 1.022 (1.001-1.035) Urine Protein Trace (Negative) mg/dL Urine Glucose (UA) 3+ H (Negative) mg/dL Quality VTE Prophylaxis VTE prophylaxis: pharmacologic ordered Hospitalist MIPS Advance Care Plan I have confirmed that the patient's Advanced Care Plan is present, code status is documented, or surrogate decision maker is listed in patient medical record.: Yes Medication Reconciliation I have utilized all available resources to obtain, update and review the patients current medications (includes all prescriptions, OTC, herbals, cannabis, and nutritional supplements).: Yes
[2025-04-18] MEDS: amLODIPine BESYLATE 10 MG TABLET PO (09:17)
[2025-04-18] MEDS: GABAPENTIN 100 MG CAPSULE PO ×3 (09:17→16:58)
[2025-04-18] MEDS: carvediloL 25 MG TABLET PO ×2 (09:18→21:01)
[2025-04-18] MEDS: PANTOPRAZOLE SODIUM IV 40 MG VIAL IV PUSH (09:18)
[2025-04-18] MEDS: ENOXAPARIN 40 MG/0.4 ML SYRINGE SUB-Q (11:05)
[2025-04-18 11:25] LABS: Glucose Point of Care 177 mg/dl (65-105)
--- NOTE | 2025-04-18 12:02 | P.CONOP_ITS ---
Assessment and Plan Assessment and plan (1) Toe pain, left: Onset Date: ~04/18/25 Code(s): M79.675 - Pain in left toe(s) Status: Acute Plan 45 yr old male with Left Great Toe swelling with MRI suggestive of either trauma vs Osteo involving distal and proximal phallanx. - trial anti-biotics and follow clinically. - if erythema and swelling extends proximally to the MTP joint, recommend amputation at level of MTP joint. - patient is adamant about not wanting any surgery involving ampution - I informed patient that this infection could extend proximally and necessitate higher level amputation. He understands and has decided absolutely no surgery. History of Present Illness HPI Consult date: 04/18/25 Chief complaint: dka Narrative: 45 yr old male with long history of IDDM with a 1 week history of Left Great Toe swelling with no known trauma. Minimal to no pain. [facility] Past Medical History Medical History Chronic pancreatitis Type I diabetes mellitus Social History Social History Smoking packs per day: 0.5 Smoking cigarettes per day: 10.0 Smoking status: Current every day smoker Substance use type: does not use Do You Feel Safe in your Home?: Yes Lack of Transportation: No Lack of Food: Sometimes True Current Housing: I Have Housing Concerned About Future Housing: YES Difficulty Paying Gas/Electric Bills: No Difficulty Paying for Meds: No Currently Unemployed: No Education: Decline to Answer Difficulty w/ Childcare or Family Care: No Spiritual care concerns: No Meds Home Medications and Allergies Home Medications ?Medication ?Instructions ?Recorded ?Confirmed ?Type amlodipine 10 mg tablet 10 mg PO DAILY 04/17/25 04/17/25 History atorvastatin 40 mg tablet 40 mg PO 04/17/25 04/17/25 History carvedilol 25 mg tablet 25 mg PO BID 04/17/25 04/17/25 History famotidine 20 mg tablet 20 mg PO BID 04/17/25 04/17/25 History gabapentin 100 mg capsule 100 mg PO TID 04/17/25 04/17/25 History insulin glargine 100 unit/mL (3 18 unit subcut 04/17/25 04/17/25 History mL) subcutaneous pen (Lantus Solostar U-100 Insulin) insulin lispro 100 unit/mL 1 sliding scale dose subcut TIDWM 04/17/25 04/17/25 History subcutaneous pen (Humalog KwikPen (U-100) Insulin) Allergies Allergy/AdvReac Type Severity Reaction Status Date / Time No Known Allergies Allergy Verified 04/17/25 12:57 Vital Signs Vital Signs - 24 hr 04/17/25 12:19 04/17/25 12:47 04/17/25 13:01 Temperature 36.9 C 37.2 C 37.1 C Pulse Rate 109 H Respiratory Rate 18 Blood Pressure 119/72 133/78 123/65 Pulse Oximetry 100 98 100 Oxygen Delivery Room Air Fraction of Inspired Oxygen 04/17/25 13:46 04/17/25 14:48 04/17/25 16:49 Temperature 36.9 C 36.6 C 36.8 C Pulse Rate 105 H 106 H Respiratory Rate 16 13 Blood Pressure 121/77 129/76 145/88 H Pulse Oximetry 100 100 100 Oxygen Delivery Fraction of Inspired Oxygen 04/17/25 16:51 04/17/25 17:49 04/17/25 18:00 Temperature 36.8 C Pulse Rate 102 H 101 H Respiratory Rate 18 Blood Pressure 126/88 Pulse Oximetry 99 100 Oxygen Delivery Room Air Fraction of Inspired Oxygen 04/17/25 18:00 04/17/25 18:31 04/17/25 18:40 Temperature 36.9 C Pulse Rate 102 H Respiratory Rate 12 Blood Pressure 135/85 Pulse Oximetry 100 Oxygen Delivery Room Air Fraction of Inspired Oxygen 04/17/25 19:51 04/17/25 19:53 04/17/25 20:00 Temperature 36.7 C Pulse Rate 102 H 102 H 99 Respiratory Rate 16 18 Blood Pressure 146/84 H Pulse Oximetry 100 98 Oxygen Delivery Room Air Fraction of Inspired Oxygen 04/17/25 20:19 04/17/25 21:34 04/17/25 22:00 Temperature Pulse Rate 99 102 H 96 Respiratory Rate 12 Blood Pressure Pulse Oximetry 100 Oxygen Delivery Room Air Fraction of Inspired Oxygen 04/17/25 22:00 04/18/25 00:00 04/18/25 00:00 Temperature Pulse Rate 96 85 85 Respiratory Rate 12 12 Blood Pressure 126/78 Pulse Oximetry 100 100 Oxygen Delivery Room Air Fraction of Inspired Oxygen 04/18/25 00:00 04/18/25 02:00 04/18/25 02:00 Temperature 37.1 C 36.8 C Pulse Rate 85 84 84 Respiratory Rate 12 12 Blood Pressure 120/77 112/80 Pulse Oximetry 100 100 Oxygen Delivery Fraction of Inspired Oxygen 04/18/25 03:47 04/18/25 03:48 04/18/25 04:00 Temperature 36.8 C Pulse Rate 84 84 86 Respiratory Rate 12 12 Blood Pressure 116/72 Pulse Oximetry 100 100 Oxygen Delivery Room Air Fraction of Inspired Oxygen 21 04/18/25 06:00 04/18/25 06:00 04/18/25 08:00 Temperature 36.8 C 36.9 C Pulse Rate 90 90 90 Respiratory Rate 12 12 Blood Pressure 121/78 124/79 Pulse Oximetry Oxygen Delivery Fraction of Inspired Oxygen 04/18/25 08:00 04/18/25 08:00 04/18/25 08:13 Temperature Pulse Rate 91 Respiratory Rate Blood Pressure Pulse Oximetry 100 100 Oxygen Delivery Room Air Fraction of Inspired Oxygen 04/18/25 09:18 Temperature Pulse Rate 93 Respiratory Rate Blood Pressure Pulse Oximetry Oxygen Delivery Fraction of Inspired Oxygen Exam 2 Narrative: Left Great toe with swelling mod warmth and erythema. Neuropathy with dreceased sensation to foot. No drainage Results Labs 04/18/25 03:43 04/18/25 03:43 Labs: Abnormal lab results 04/17/25 04/17/25 04/17/25 Range/Units 12:20 12:25 12:38 WBC 11.9 H (4.5-10.0) K/mm3 RBC 3.74 L (4.6-6.20) M/mm3 Hgb 11.1 L (14.0-18.0) g/dL Hct 35.1 L (42.0-52.0) % MCHC 31.6 L (32-36) g/dl Immature Gran % (Auto) 0.7 H (0-0.5) % Neut % (Auto) 77.0 H (45.5-73.1) % Lymph % (Auto) 14.4 L (18.3-44.2) % [place] # (Auto) 0.8 H (0.1-0.6) K/mm3 Abs Immat Gran (auto) 0.08 H (0.00-0.031) K/mm3 Absolute Neuts (auto) 9.2 H (1.3-6.7) K/mm3 VBG pH 7.197 L* (7.300-7.400) VBG pCO2 28.0 L* (42.0-48.0) mmHg VBG HCO3 10.6 L (24.0-30.0) mEq/l Sodium 128 L (137-145) mmol/L Potassium 5.4 H (3.4-5.0) mmol/L Chloride 88 L (98-107) mmol/L Carbon Dioxide 8 L (22-30) mmol/L Anion Gap 32 H (4-12) mmol/L BUN 30 H (9-20) mg/dL Creatinine 2.17 H (0.7-1.3) mg/dL Estimated GFR 33 L (59 - ) Glucose 829 H* (65-110) mg/dL POC Capillary Glucose > 500 H* (65-105) mg/dl Hemoglobin A1c (<5.7) % Phosphorus 6.4 H (2.5-4.5) mg/dL Magnesium 2.4 H (1.6-2.3) mg/dL Total Protein (6.3-8.2) g/dL Lipase (23-300) U/L Beta-Hydroxybutyrate/Acetoacetate 11.20 H (0.02-0.27) mmol/L Urine Glucose (UA) (Negative) mg/dL Urine Ketones (Negative) mg/dL U Cannabinoids Screen (Negative) 04/17/25 04/17/25 04/17/25 Range/Units 13:00 14:31 14:35 WBC (4.5-10.0) K/mm3 RBC (4.6-6.20) M/mm3 Hgb (14.0-18.0) g/dL Hct (42.0-52.0) % MCHC (32-36) g/dl Immature Gran % (Auto) (0-0.5) % Neut % (Auto) (45.5-73.1) % Lymph % (Auto) (18.3-44.2) % [place] # (Auto) (0.1-0.6) K/mm3 Abs Immat Gran (auto) (0.00-0.031) K/mm3 Absolute Neuts (auto) (1.3-6.7) K/mm3 VBG pH (7.300-7.400) VBG pCO2 (42.0-48.0) mmHg VBG HCO3 (24.0-30.0) mEq/l Sodium 127 L 134 L (137-145) mmol/L Potassium 5.4 H (3.4-5.0) mmol/L Chloride 88 L (98-107) mmol/L Carbon Dioxide 8 L 8 L (22-30) mmol/L Anion Gap 31 H 26 H (4-12) mmol/L BUN 31 H 29 H (9-20) mg/dL Creatinine 2.24 H 1.90 H (0.7-1.3) mg/dL Estimated GFR 32 L 39 L (59 - ) Glucose 830 H* 598 H* (65-110) mg/dL POC Capillary Glucose 489 H (65-105) mg/dl Hemoglobin A1c 12.4 H (<5.7) % Phosphorus (2.5-4.5) mg/dL Magnesium (1.6-2.3) mg/dL Total Protein (6.3-8.2) g/dL Lipase (23-300) U/L Beta-Hydroxybutyrate/Acetoacetate (0.02-0.27) mmol/L Urine Glucose (UA) 3+ H (Negative) mg/dL Urine Ketones 3+ H (Negative) mg/dL U Cannabinoids Screen Positive A (Negative) 04/17/25 04/17/25 04/17/25 Range/Units 15:35 16:45 17:34 WBC (4.5-10.0) K/mm3 RBC (4.6-6.20) M/mm3 Hgb (14.0-18.0) g/dL Hct (42.0-52.0) % MCHC (32-36) g/dl Immature Gran % (Auto) (0-0.5) % Neut % (Auto) (45.5-73.1) % Lymph % (Auto) (18.3-44.2) % [place] # (Auto) (0.1-0.6) K/mm3 Abs Immat Gran (auto) (0.00-0.031) K/mm3 Absolute Neuts (auto) (1.3-6.7) K/mm3 VBG pH (7.300-7.400) VBG pCO2 (42.0-48.0) mmHg VBG HCO3 (24.0-30.0) mEq/l Sodium (137-145) mmol/L Potassium (3.4-5.0) mmol/L Chloride (98-107) mmol/L Carbon Dioxide (22-30) mmol/L Anion Gap (4-12) mmol/L BUN (9-20) mg/dL Creatinine (0.7-1.3) mg/dL Estimated GFR (59 - ) Glucose (65-110) mg/dL POC Capillary Glucose 461 H 353 H 297 H (65-105) mg/dl Hemoglobin A1c (<5.7) % Phosphorus (2.5-4.5) mg/dL Magnesium (1.6-2.3) mg/dL Total Protein (6.3-8.2) g/dL Lipase (23-300) U/L Beta-Hydroxybutyrate/Acetoacetate (0.02-0.27) mmol/L Urine Glucose (UA) (Negative) mg/dL Urine Ketones (Negative) mg/dL U Cannabinoids Screen (Negative) 04/17/25 04/17/25 04/17/25 Range/Units 18:37 19:18 19:37 WBC (4.5-10.0) K/mm3 RBC (4.6-6.20) M/mm3 Hgb (14.0-18.0) g/dL Hct (42.0-52.0) % MCHC (32-36) g/dl Immature Gran % (Auto) (0-0.5) % Neut % (Auto) (45.5-73.1) % Lymph % (Auto) (18.3-44.2) % [place] # (Auto) (0.1-0.6) K/mm3 Abs Immat Gran (auto) (0.00-0.031) K/mm3 Absolute Neuts (auto) (1.3-6.7) K/mm3 VBG pH (7.300-7.400) VBG pCO2 (42.0-48.0) mmHg VBG HCO3 (24.0-30.0) mEq/l Sodium (137-145) mmol/L Potassium (3.4-5.0) mmol/L Chloride (98-107) mmol/L Carbon Dioxide 19 L (22-30) mmol/L Anion Gap 13 H (4-12) mmol/L BUN 26 H (9-20) mg/dL Creatinine 1.53 H (0.7-1.3) mg/dL Estimated GFR 50 L (59 - ) Glucose 187 H (65-110) mg/dL POC Capillary Glucose 219 H 198 H (65-105) mg/dl Hemoglobin A1c (<5.7) % Phosphorus (2.5-4.5) mg/dL Magnesium (1.6-2.3) mg/dL Total Protein (6.3-8.2) g/dL Lipase 826 H (23-300) U/L Beta-Hydroxybutyrate/Acetoacetate (0.02-0.27) mmol/L Urine Glucose (UA) (Negative) mg/dL Urine Ketones (Negative) mg/dL U Cannabinoids Screen (Negative) 04/17/25 04/17/25 04/17/25 Range/Units 20:21 21:22 22:26 WBC (4.5-10.0) K/mm3 RBC (4.6-6.20) M/mm3 Hgb (14.0-18.0) g/dL Hct (42.0-52.0) % MCHC (32-36) g/dl Immature Gran % (Auto) (0-0.5) % Neut % (Auto) (45.5-73.1) % Lymph % (Auto) (18.3-44.2) % [place] # (Auto) (0.1-0.6) K/mm3 Abs Immat Gran (auto) (0.00-0.031) K/mm3 Absolute Neuts (auto) (1.3-6.7) K/mm3 VBG pH (7.300-7.400) VBG pCO2 (42.0-48.0) mmHg VBG HCO3 (24.0-30.0) mEq/l Sodium (137-145) mmol/L Potassium (3.4-5.0) mmol/L Chloride (98-107) mmol/L Carbon Dioxide (22-30) mmol/L Anion Gap (4-12) mmol/L BUN (9-20) mg/dL Creatinine (0.7-1.3) mg/dL Estimated GFR (59 - ) Glucose (65-110) mg/dL POC Capillary Glucose 166 H 165 H 122 H (65-105) mg/dl Hemoglobin A1c (<5.7) % Phosphorus (2.5-4.5) mg/dL Magnesium (1.6-2.3) mg/dL Total Protein (6.3-8.2) g/dL Lipase (23-300) U/L Beta-Hydroxybutyrate/Acetoacetate (0.02-0.27) mmol/L Urine Glucose (UA) (Negative) mg/dL Urine Ketones (Negative) mg/dL U Cannabinoids Screen (Negative) 04/17/25 04/17/25 04/18/25 Range/Units 23:26 23:28 00:20 WBC (4.5-10.0) K/mm3 RBC (4.6-6.20) M/mm3 Hgb (14.0-18.0) g/dL Hct (42.0-52.0) % MCHC (32-36) g/dl Immature Gran % (Auto) (0-0.5) % Neut % (Auto) (45.5-73.1) % Lymph % (Auto) (18.3-44.2) % [place] # (Auto) (0.1-0.6) K/mm3 Abs Immat Gran (auto) (0.00-0.031) K/mm3 Absolute Neuts (auto) (1.3-6.7) K/mm3 VBG pH (7.300-7.400) VBG pCO2 (42.0-48.0) mmHg VBG HCO3 (24.0-30.0) mEq/l Sodium 135 L (137-145) mmol/L Potassium (3.4-5.0) mmol/L Chloride (98-107) mmol/L Carbon Dioxide 21 L (22-30) mmol/L Anion Gap (4-12) mmol/L BUN 24 H (9-20) mg/dL Creatinine 1.37 H (0.7-1.3) mg/dL Estimated GFR 57 L (59 - ) Glucose (65-110) mg/dL POC Capillary Glucose 113 H 108 H (65-105) mg/dl Hemoglobin A1c (<5.7) % Phosphorus (2.5-4.5) mg/dL Magnesium (1.6-2.3) mg/dL Total Protein (6.3-8.2) g/dL Lipase (23-300) U/L Beta-Hydroxybutyrate/Acetoacetate (0.02-0.27) mmol/L Urine Glucose (UA) (Negative) mg/dL Urine Ketones (Negative) mg/dL U Cannabinoids Screen (Negative) 04/18/25 04/18/25 04/18/25 Range/Units 01:23 03:43 11:14 WBC 12.6 H (4.5-10.0) K/mm3 RBC 3.02 L (4.6-6.20) M/mm3 Hgb 9.0 L (14.0-18.0) g/dL Hct 27.9 L (42.0-52.0) % MCHC (32-36) g/dl Immature Gran % (Auto) (0-0.5) % Neut % (Auto) (45.5-73.1) % Lymph % (Auto) (18.3-44.2) % [place] # (Auto) 0.9 H (0.1-0.6) K/mm3 Abs Immat Gran (auto) 0.05 H (0.00-0.031) K/mm3 Absolute Neuts (auto) 8.3 H (1.3-6.7) K/mm3 VBG pH (7.300-7.400) VBG pCO2 (42.0-48.0) mmHg VBG HCO3 (24.0-30.0) mEq/l Sodium (137-145) mmol/L Potassium (3.4-5.0) mmol/L Chloride 108 H (98-107) mmol/L Carbon Dioxide 19 L (22-30) mmol/L Anion Gap (4-12) mmol/L BUN 22 H (9-20) mg/dL Creatinine 1.33 H (0.7-1.3) mg/dL Estimated GFR (59 - ) Glucose (65-110) mg/dL POC Capillary Glucose 121 H 177 H (65-105) mg/dl Hemoglobin A1c (<5.7) % Phosphorus (2.5-4.5) mg/dL Magnesium (1.6-2.3) mg/dL Total Protein 6.0 L (6.3-8.2) g/dL Lipase 421 H (23-300) U/L Beta-Hydroxybutyrate/Acetoacetate (0.02-0.27) mmol/L Urine Glucose (UA) (Negative) mg/dL Urine Ketones (Negative) mg/dL U Cannabinoids Screen (Negative) H & H 04/17/25 04/18/25 Range/Units 12:25 03:43 Hgb 11.1 L 9.0 L (14.0-18.0) g/dL Hct 35.1 L 27.9 L (42.0-52.0) % All other labs normal.
--- NOTE | 2025-04-18 13:11 | PC.NURSE ---
This patient, Isauro Celeste, was transferred to [[facility]] on 04/18/25 at 1311. Personal belongings sent with patient. Report given to [Chantelle LANIER]. Appropriate documentation sent with patient.
--- NOTE | 2025-04-18 16:18 | PC.NURSE ---
This patient, Isauro Celeste, was received from ICU9 on 04/18/25 at 1315. Patient/family oriented to unit policies and routines
[2025-04-18] MEDS: INSULIN ASPART (*BKC) 100 UNITS/ML SUB-Q (16:57)
[2025-04-18 17:03] LABS: Glucose Point of Care 329 mg/dl (65-105)
[2025-04-18 20:27] LABS: Glucose Point of Care 393 mg/dl (65-105)
[2025-04-18] MEDS: ATORVASTATIN 40 MG TABLET PO (21:01)
[2025-04-19] MEDS: VANCOMYCIN 1,250 MG/NS 250 ML 1,250 MG/250 ML BAG 166.67 MG IVPB ×2 (02:18→21:10)
[2025-04-19] MEDS: metroNIDAZOLE 500 MG/ISO 100ML 500 MG/100 ML BAG 100 MG IVPB ×3 (05:35→22:49)
[2025-04-19 06:00] VITALS: BP 141/76; PULSE 89; RESP 18; TEMP 36.4; O2SAT 100
[2025-04-19 06:59] LABS: Basophils Absolute Auto 0.1 K/mm3 (0.0-0.1); Basophils Percent Auto 0.7 % (0.2-1.2); Eosinophils Absolute Auto 0.3 K/mm3 (0-0.3); Hematocrit 30.9 % (42.0-52.0); Immature Granulocyte Absolute 0.01 K/mm3 (0.00-0.031); Immature Granulocyte Percent A 0.1 % (0-0.5); Lymphocytes Absolute Auto 2.08 K/mm3 (0.9-3.2); Mean Corpuscular HGB Conc 32.4 g/dl (32-36); Mean Corpuscular Volume 92.8 fl (80-100); Mean Platelet Volume 8.5 fl (7.4-10.4); Monocytes Absolute Auto 0.6 K/mm3 (0.1-0.6); Monocytes Percent Auto 8.7 % (2.6-8.5); Neutrophils Absolute Auto 3.9 K/mm3 (1.3-6.7); Neutrophils Percent Auto 56.5 % (45.5-73.1); Platelet Count Result 178 k/mm3 (150-375); Red Blood Count 3.33 M/mm3 (4.6-6.20); Red Cell Distribution Width 12.2 % (11.5-14.5); White Blood Count 6.9 K/mm3 (4.5-10.0)
[2025-04-19 07:10] LABS: Alanine Aminotransferase 20 U/L (6-50); Albumin Level 3.7 g/dL (3.5-5.1); Alkaline Phosphatase 73 U/L (38-126); Anion Gap 7 mmol/L (4-12); Aspartate Amino Transferase 30 U/L (17-59); Bilirubin,Total 0.6 mg/dL (0.2-1.3); Blood Urea Nitrogen 10 mg/dL (9-20); Calcium 9.1 mg/dL (8.4-10.2); Carbon Dioxide 23 mmol/L (22-30); Chloride 105 mmol/L (98-107); Estimated CRCL calculation 78 ml/min; Estimated Glomerular Filt Rate > 60; Glucose 232 mg/dL (65-110); Magnesium 1.7 mg/dL (1.6-2.3); Phosphorus 2.7 mg/dL (2.5-4.5); Potassium 3.9 mmol/L (3.4-5.0); Sodium 135 mmol/L (137-145)
[2025-04-19 07:33] LABS: Glucose Point of Care 212 mg/dl (65-105)
[2025-04-19] MEDS: PANTOPRAZOLE SODIUM IV 40 MG VIAL IV PUSH (09:07)
[2025-04-19 09:09] VITALS: PULSE 72
[2025-04-19] MEDS: amLODIPine BESYLATE 10 MG TABLET PO (09:09)
[2025-04-19] MEDS: carvediloL 25 MG TABLET PO ×2 (09:09→20:34)
[2025-04-19] MEDS: GABAPENTIN 100 MG CAPSULE PO ×3 (09:09→16:45)
[2025-04-19] MEDS: INSULIN ASPART (*BKC) 100 UNITS/ML SUB-Q ×3 (09:10→16:44)
[2025-04-19] MEDS: ENOXAPARIN 40 MG/0.4 ML SYRINGE SUB-Q (09:13)
[2025-04-19] MEDS: CEFEPIME 2 GM/NS 50 ML 2 GM/50 ML BAG IVPB ×2 (10:32→20:34)
[2025-04-19 11:42] LABS: Glucose Point of Care 209 mg/dl (65-105)
[2025-04-19 14:00] VITALS: BP 145/95; PULSE 84; RESP 18; TEMP 36.9; O2SAT 100
--- NOTE | 2025-04-19 14:37 | PM.IMPN ---
Progress Note: A&P Assessment and Plan (1) DKA (diabetic ketoacidosis): Qualifiers: Diabetes mellitus complication detail: without coma Diabetes mellitus type: type 1 Qualified Code(s): E10.10 - Type 1 diabetes mellitus with ketoacidosis without coma Code(s): E11.10 - Type 2 diabetes mellitus with ketoacidosis without coma Status: Acute Assessment and Plan: 04/17: Patient presented with nausea, vomiting, diarrhea, abdominal pain, initial glucose was 829, anion gap of 32, elevated beta hydroxybutyrate 11.20, UA showed positive ketones and glucose -Chest x-ray with no focal infiltrates diffuse. CT chest, abdomen and pelvis showed questionable infectious/inflammatory colitis especially the distal descending colon, chronic pancreatitis. S/p IV insulin and fluids continue sq insulin regimen -hemoglobin A1c this admission is 12.4 -continue with diabetic diet (2) ROM (acute kidney injury): Code(s): N17.9 - Acute kidney failure, unspecified Status: Acute Assessment and Plan: Acute kidney injury likely related to hypovolemia, anti emetic ketoacidosis, diarrhea resolved. from dehydaration (3) Toe pain, left: Onset Date: ~04/18/25 Code(s): M79.675 - Pain in left toe(s) Status: Acute Assessment and Plan: Left back to pain, swelling 04/16: X-ray left foot: Osteomyelitis of the base of the distal phalanx of the big toe with fracture. Clinical correlation advised. Sclerotic changes in the proximal phalanx of the fourth toe which may indicate osteomyelitis. Narrowing of the interphalangeal joint of the first toe. MRI of the left foot showed great toe fracture and septic arthritis with osteo Patient is not contemplating surgery at this time will discuss with ortho continue Cefepime, Vanc and Flagyl (4) Colitis: Code(s): K52.9 - Noninfective gastroenteritis and colitis, unspecified Status: Acute Assessment and Plan: Likely related to diabetes ketoacidosis -abdominal pain has resolved Plan DVT prophylaxis: Lovenox Stress ulcer prophylaxis: Not indicated Nutrition: Diabetic diet Subjective Date/time seen: 04/19/25 14:37 Interval history: Comfortable at bedside still stating he will prefer non surgical management Review of Systems Review of Systems: All systems reviewed & are unremarkable except as noted in HPI and below Exam Narrative: General: Pleasant gently and in no acute distress HEENT:? Pupils equal and reactive, sclera is clear, moist oral mucosa Neck:? Supple Respiratory:? Clear to auscultation bilaterally Cardiac:? S1-S2, regular rate and rhythm Abdomen:? Soft, nontender, nondistended, normoactive bowel sounds Extremities:? Left big toe is swollen, warm, tender, palpable pedal pulses bilaterally Neuro:? Patient is awake, alert, oriented, nonfocal Skin:? No skin lesions noted Psych:? Normal mentation and affect Const: General: comfortable and no acute distress Other: , male, ill-appearing HENMT: Face/Nose/Sinus: Normal nares present Mouth: Yes dry mucous membranes Eyes: General: appearance normal, both eyes and all related structures Sclera: sclerae normal Pupils: Equal, round and reactive pupils present EOM: EOMs intact bilaterally Resp: Effort & Inspection: normal respiratory effort Auscultation: clear to auscultation bilaterally Cardio: Rate: regular rate Rhythm: regular rhythm Other: S1-S2 present without murmur, rub, ectopy GI: Other: Abdomen soft, nondistended, nontender. Normoactive bowel sounds in all quadrants. Skin: General skin exam: normal color and no rashes or lesions noted Wounds: no wounds Neuro: Cranial nerves: Yes Equal, round and reactive pupils present Speech: normal speech Motor exam (neuro): 5/5 motor strength present throughout Sensory Exam: normal sensation Other: A&O x4 Extrem: Other: No peripheral edema. Swelling to left greater toe without signs of infection or wound openings/evidence of insect bite. Psych: Mental Status: mental status grossly normal Affect: normal affect Other: Good insight and judgment, very pleasant Objective Data Vital Signs Vital Signs: Vital Signs - 24 hr 04/18/25 18:38 04/18/25 20:00 04/18/25 22:00 Temperature 97.2 F L Pulse Rate 93 93 Respiratory Rate 18 18 Blood Pressure 149/93 H Pulse Oximetry 100 100 Oxygen Delivery Room Air Room Air Fraction of Inspired Oxygen 21 04/19/25 06:00 04/19/25 08:00 04/19/25 09:09 Temperature 97.6 F Pulse Rate 89 72 Respiratory Rate 18 Blood Pressure 141/76 H Pulse Oximetry 100 Oxygen Delivery Room Air Fraction of Inspired Oxygen Intake/Output Intake/Output: Intake & Output 04/16/25 04/17/25 04/18/25 04/19/25 23:59 23:59 23:59 23:59 Intake Total 4153.5 4499 1170 Output Total 500 1250 Balance 3653.5 3249 1170 Meds/Results Medications: Active Medications Generic Name Dose Route Start Last Admin Trade Name Freq PRN Reason Stop Dose Admin Acetaminophen 650 mg 04/17/25 17:45 04/17/25 21:34 Acetaminophen 325 Mg Tablet PO 650 mg Q4H PRN Administration Mild Pain (1-3) or Fever Amlodipine Besylate 10 mg 04/18/25 09:00 04/19/25 09:09 Amlodipine Besylate 10 Mg Tablet PO 10 mg DAILY JULIO CESAR Administration Atorvastatin Calcium 40 mg 04/17/25 21:00 04/18/25 21:01 Atorvastatin 40 Mg Tablet PO 40 mg HS JULIO CESAR Administration Carvedilol 25 mg 04/17/25 21:00 04/19/25 09:09 Carvedilol 25 Mg Tablet PO 25 mg Q12HR JULIO CESAR Administration Dextrose 12.5 gm 04/17/25 13:01 Dextrose 50% 25 Gm/50 Ml Syringe IV PUSH PRN PRN Hypoglycemia Protocol Enoxaparin Sodium 40 mg 04/19/25 09:00 04/19/25 09:13 Enoxaparin 40 Mg/0.4 Ml Syringe SUB-Q 40 mg DAILY JULIO CESAR Administration Gabapentin 100 mg 04/18/25 09:00 04/19/25 14:17 Gabapentin 100 Mg Capsule PO 100 mg TID JULIO CESAR Administration Glucagon 1 mg 04/17/25 13:01 Glucagon For Inj 1 Mg Vial IM PRN PRN Hypoglycemia Protocol Glucose 15 gm 04/17/25 13:01 Glucose Oral Gel 15 Gm Of Glucse In 37.5 Gm Tube PO PRN PRN Hypoglycemia Protocol Dextrose 1,000 mls @ 100 mls/hr 04/17/25 13:01 Dextrose 5% 1,000 Ml IVPB PRN PRN Hypoglycemia Protocol Metronidazole 500 mg in 100 mls @ 100 mls/hr 04/17/25 22:00 04/19/25 14:17 Flagyl 500 Mg/Iso Soln 100 Ml IVPB 100 mls/hr Q8HR JULIO CESAR Administration Cefepime HCl 2 gm in 50 mls @ 100 mls/hr 04/18/25 10:30 04/19/25 10:32 Maxipime 2 Gm/Ns 50 Ml IVPB 100 mls/hr Q12HR JULIO CESAR Administration Vancomycin HCl 1,250 mg in 250 mls @ 166.667 mls/hr 04/19/25 19:00 Vancomycin 1,250 Mg/Ns 250 Ml IVPB Q18H JULIO CESAR Insulin Aspart 3 - 6 units 04/18/25 08:00 04/19/25 11:51 Insulin Aspart (*Bkc) 100 Units/Ml SUB-Q 3 units TIDWM JULIO CESAR Administration Protocol Insulin Glargine 17 units 04/18/25 00:15 04/18/25 21:17 Insulin Glargine (*Bkc) 100 Units/Ml SUB-Q 17 units HS JULIO CESAR Administration Ondansetron HCl 4 mg 04/17/25 17:45 Ondansetron Inj 4 Mg/2 Ml Vial IV PUSH Q4H PRN Nausea And Vomiting Pantoprazole Sodium 40 mg 04/18/25 09:00 04/19/25 09:07 Pantoprazole Sodium Iv 40 Mg Vial IV PUSH 40 mg QAM JULIO CESAR Administration Radiology Results: ITS Impressions Chest X-Ray 04/17/25 12:56 IMPRESSION: No focal infiltrate or effusion. Chest/Abdomen/Pelvis CT 04/17/25 14:05 Impression: Questionable infectious/inflammatory colitis, especially the distal descending colon. Correlate clinically. Chronic pancreatitis. Foot X-Ray 04/17/25 23:03 IMPRESSION: Osteomyelitis of the base of the distal phalanx of the big toe with fracture. Clinical correlation advised. Sclerotic changes in the proximal phalanx of the fourth toe which may indicate osteomyelitis. Narrowing of the interphalangeal joint of the first toe.. Foot MRI 04/18/25 11:16 IMPRESSION: Transverse fracture the proximal portion of the distal phalanx of the great toe. Possible superimposed septic arthritis of the interphalangeal joint of the great toe with associated osteomyelitis of the proximal and distal phalanges. Correlate for posttraumatic joint effusion and bone contusions. Correlate clinically for signs/symptoms of infection. Labs Labs: Laboratory Results - last 24 hr 04/18/25 04/18/25 04/19/25 16:51 19:41 06:49 WBC RBC Hgb Hct MCV MCH MCHC RDW Plt Count MPV Immature Gran % (Auto) Neut % (Auto) Lymph % (Auto) [place] % (Auto) Eos % (Auto) Baso % (Auto) Lymph # (Auto) [place] # (Auto) Eos # (Auto) Baso # (Auto) Abs Immat Gran (auto) Absolute Neuts (auto) Absolute Nucleated RBC Nucleated RBC % Sodium 135 L Potassium 3.9 Chloride 105 Carbon Dioxide 23 Anion Gap 7 BUN 10 D Creatinine 0.96 Estim Creat Clear Calc 78 Estimated GFR > 60 Glucose 232 H POC Capillary Glucose 329 H 393 H Calcium 9.1 Phosphorus 2.7 Magnesium 1.7 Total Bilirubin 0.6 AST 30 ALT 20 Alkaline Phosphatase 73 Total Protein 7.0 Albumin 3.7 04/19/25 04/19/25 04/19/25 06:52 07:26 11:34 WBC 6.9 RBC 3.33 L Hgb 10.0 L Hct 30.9 L MCV 92.8 MCH 30.0 MCHC 32.4 RDW 12.2 Plt Count 178 MPV 8.5 Immature Gran % (Auto) 0.1 Neut % (Auto) 56.5 Lymph % (Auto) 30.0 [place] % (Auto) 8.7 H Eos % (Auto) 4.0 Baso % (Auto) 0.7 Lymph # (Auto) 2.08 [place] # (Auto) 0.6 Eos # (Auto) 0.3 Baso # (Auto) 0.1 Abs Immat Gran (auto) 0.01 Absolute Neuts (auto) 3.9 Absolute Nucleated RBC 0.000 Nucleated RBC % 0.0 Sodium Potassium Chloride Carbon Dioxide Anion Gap BUN Creatinine Estim Creat Clear Calc Estimated GFR Glucose POC Capillary Glucose 212 H 209 H Calcium Phosphorus Magnesium Total Bilirubin AST ALT Alkaline Phosphatase Total Protein Albumin Quality VTE Prophylaxis VTE prophylaxis: pharmacologic ordered
[2025-04-19 16:31] LABS: Glucose Point of Care 303 mg/dl (65-105)
[2025-04-19 19:16] LABS: Vancomycin Trough 11.5 ug/mL (10.0-20.0)
--- NOTE | 2025-04-19 19:55 | PC.NURSE ---
On 04/19/25, the CANDY COUNTER CLERK,Sammie Shaikh, provided care and completed [employer] documentation on this patient. I have reviewed the CANDY COUNTER CLERK's documentation and agree with the findings.
[2025-04-19] MEDS: ATORVASTATIN 40 MG TABLET PO (20:34)
[2025-04-19 21:07] LABS: Glucose Point of Care 304 mg/dl (65-105)
[2025-04-19] MEDS: INSULIN GLARGINE (*BKC) 100 UNITS/ML 17 UNITS SUB-Q (21:16)
[2025-04-19 21:19] VITALS: O2SAT 99
[2025-04-19 21:36] VITALS: BP 141/88; PULSE 84; RESP 18; TEMP 37.1; O2SAT 99
[2025-04-20 05:38] VITALS: BP 148/92; PULSE 82; RESP 18; TEMP 37; O2SAT 100
[2025-04-20] MEDS: metroNIDAZOLE 500 MG/ISO 100ML 500 MG/100 ML BAG 100 MG IVPB ×3 (06:05→23:48)
[2025-04-20 06:17] LABS: Basophils Percent Auto 0.7 % (0.2-1.2); Eosinophils Absolute Auto 0.3 K/mm3 (0-0.3); Eosinophils Percent Auto 4.7 % (0-4.4); Hematocrit 31.6 % (42.0-52.0); Hemoglobin 10.3 g/dL (14.0-18.0); Immature Granulocyte Absolute 0.01 K/mm3 (0.00-0.031); Immature Granulocyte Percent A 0.2 % (0-0.5); Lymphocytes Absolute Auto 1.98 K/mm3 (0.9-3.2); Lymphocytes Percent Auto 32.9 % (18.3-44.2); Mean Corpuscular HGB Conc 32.6 g/dl (32-36); Mean Corpuscular Hemoglobin 30.3 pg (26-34); Mean Corpuscular Volume 92.9 fl (80-100); Mean Platelet Volume 9.4 fl (7.4-10.4); Monocytes Absolute Auto 0.6 K/mm3 (0.1-0.6); Monocytes Percent Auto 10.1 % (2.6-8.5); Neutrophils Absolute Auto 3.1 K/mm3 (1.3-6.7); Neutrophils Percent Auto 51.4 % (45.5-73.1); Platelet Count Result 200 k/mm3 (150-375); Red Cell Distribution Width 12.2 % (11.5-14.5)
[2025-04-20 06:28] LABS: Alanine Aminotransferase 16 U/L (6-50); Albumin Level 3.8 g/dL (3.5-5.1); Alkaline Phosphatase 72 U/L (38-126); Anion Gap 5 mmol/L (4-12); Aspartate Amino Transferase 27 U/L (17-59); Bilirubin,Total 0.6 mg/dL (0.2-1.3); Blood Urea Nitrogen 7 mg/dL (9-20); Calcium 9.1 mg/dL (8.4-10.2); Carbon Dioxide 24 mmol/L (22-30); Chloride 105 mmol/L (98-107); Estimated CRCL calculation 82 ml/min; Estimated Glomerular Filt Rate > 60; Glucose 194 mg/dL (65-110); Magnesium 1.6 mg/dL (1.6-2.3); Phosphorus 2.8 mg/dL (2.5-4.5); Potassium 4.2 mmol/L (3.4-5.0); Sodium 134 mmol/L (137-145)
[2025-04-20 07:45] LABS: Glucose Point of Care 170 mg/dl (65-105)
[2025-04-20] MEDS: VANCOMYCIN 1,250 MG/NS 250 ML 1,250 MG/250 ML BAG 166.67 MG IVPB ×2 (08:36→22:12)
[2025-04-20 08:38] VITALS: PULSE 94
[2025-04-20] MEDS: carvediloL 25 MG TABLET PO ×2 (08:38→20:46)
[2025-04-20] MEDS: PANTOPRAZOLE SODIUM IV 40 MG VIAL IV PUSH (08:39)
[2025-04-20] MEDS: amLODIPine BESYLATE 10 MG TABLET PO (08:39)
[2025-04-20] MEDS: GABAPENTIN 100 MG CAPSULE PO ×3 (08:39→16:33)
--- NOTE | 2025-04-20 09:53 | P.PNIM_ITS ---
Progress Note: A&P Assessment and Plan (1) DKA (diabetic ketoacidosis): Qualifiers: Diabetes mellitus complication detail: without coma Diabetes mellitus type: type 1 Qualified Code(s): E10.10 - Type 1 diabetes mellitus with ketoacidosis without coma Code(s): E11.10 - Type 2 diabetes mellitus with ketoacidosis without coma Status: Acute Assessment and Plan: 04/17: Patient presented with nausea, vomiting, diarrhea, abdominal pain, initial glucose was 829, anion gap of 32, elevated beta hydroxybutyrate 11.20, UA showed positive ketones and glucose -Chest x-ray with no focal infiltrates diffuse. CT chest, abdomen and pelvis showed questionable infectious/inflammatory colitis especially the distal descending colon, chronic pancreatitis. S/p IV insulin and fluids continue sq insulin regimen -hemoglobin A1c this admission is 12.4 -continue with diabetic diet (2) ROM (acute kidney injury): Code(s): N17.9 - Acute kidney failure, unspecified Status: Acute Assessment and Plan: Acute kidney injury likely related to hypovolemia, anti emetic ketoacidosis, diarrhea resolved. from dehydaration (3) Toe pain, left: Onset Date: ~04/18/25 Code(s): M79.675 - Pain in left toe(s) Status: Acute Assessment and Plan: Left back to pain, swelling 04/16: X-ray left foot: Osteomyelitis of the base of the distal phalanx of the big toe with fracture. Clinical correlation advised. Sclerotic changes in the proximal phalanx of the fourth toe which may indicate osteomyelitis. Narrowing of the interphalangeal joint of the first toe. MRI of the left foot showed great toe fracture and septic arthritis with osteo continue Cefepime, Vanc and Flagyl Awaiting ortho re-eval, since patient is now open to surgical intervention (4) Colitis: Code(s): K52.9 - Noninfective gastroenteritis and colitis, unspecified Status: Acute Assessment and Plan: Likely related to diabetes ketoacidosis -abdominal pain has resolved Plan DVT prophylaxis: Lovenox Nutrition: Diabetic diet Subjective Date/time seen: 04/20/25 09:53 Interval history: Comfortable at bedside patient is now considering surgical intervention Awaiting ortho re-eval Review of Systems Review of Systems: All systems reviewed & are unremarkable except as noted in HPI and below Exam Narrative: General: Pleasant gently and in no acute distress HEENT:? Pupils equal and reactive, sclera is clear, moist oral mucosa Neck:? Supple Respiratory:? Clear to auscultation bilaterally Cardiac:? S1-S2, regular rate and rhythm Abdomen:? Soft, nontender, nondistended, normoactive bowel sounds Extremities:? Left big toe is swollen, warm, tender, palpable pedal pulses bilaterally Neuro:? Patient is awake, alert, oriented, nonfocal Skin:? No skin lesions noted Psych:? Normal mentation and affect Const: General: comfortable and no acute distress Other: , male, ill-appearing HENMT: Face/Nose/Sinus: Normal nares present Mouth: Yes dry mucous membranes Eyes: General: appearance normal, both eyes and all related structures Sclera: sclerae normal Pupils: Equal, round and reactive pupils present EOM: EOMs intact bilaterally Resp: Effort & Inspection: normal respiratory effort Auscultation: clear to auscultation bilaterally Cardio: Rate: regular rate Rhythm: regular rhythm Other: S1-S2 present without murmur, rub, ectopy GI: Other: Abdomen soft, nondistended, nontender. Normoactive bowel sounds in all quadrants. Skin: General skin exam: normal color and no rashes or lesions noted Wounds: no wounds Neuro: Cranial nerves: Yes Equal, round and reactive pupils present Speech: normal speech Motor exam (neuro): 5/5 motor strength present throughout Sensory Exam: normal sensation Other: A&O x4 Extrem: Other: No peripheral edema. Swelling to left greater toe without signs of infection or wound openings/evidence of insect bite. Psych: Mental Status: mental status grossly normal Affect: normal affect Other: Good insight and judgment, very pleasant Objective Data Vital Signs Vital Signs: Vital Signs - 24 hr 04/19/25 14:00 04/19/25 20:00 04/19/25 21:19 Temperature 98.5 F Pulse Rate 84 Respiratory Rate 18 Blood Pressure 145/95 H Pulse Oximetry 100 99 Oxygen Delivery Room Air Room Air 04/19/25 21:36 04/20/25 05:38 04/20/25 08:38 Temperature 98.7 F 98.6 F Pulse Rate 84 82 94 Respiratory Rate 18 18 Blood Pressure 141/88 H 148/92 H Pulse Oximetry 99 100 Oxygen Delivery Intake/Output Intake/Output: Intake & Output 0504/18/25 04/19/25 04/20/25 23:59 23:59 23:59 23:59 Intake Total 4153.5 4499 3010 780 Output Total 500 1250 Balance 3653.5 3249 3010 780 Meds/Results Medications: Active Medications Generic Name Dose Route Start Last Admin Trade Name Freq PRN Reason Stop Dose Admin Acetaminophen 650 mg 04/17/25 17:45 04/17/25 21:34 Acetaminophen 325 Mg Tablet PO 650 mg Q4H PRN Administration Mild Pain (1-3) or Fever Amlodipine Besylate 10 mg 04/18/25 09:00 04/20/25 08:39 Amlodipine Besylate 10 Mg Tablet PO 10 mg DAILY JULIO CESAR Administration Atorvastatin Calcium 40 mg 04/17/25 21:00 04/19/25 20:34 Atorvastatin 40 Mg Tablet PO 40 mg HS JULIO CESAR Administration Carvedilol 25 mg 04/17/25 21:00 04/20/25 08:38 Carvedilol 25 Mg Tablet PO 25 mg Q12HR JULIO CESAR Administration Dextrose 12.5 gm 04/17/25 13:01 Dextrose 50% 25 Gm/50 Ml Syringe IV PUSH PRN PRN Hypoglycemia Protocol Enoxaparin Sodium 40 mg 04/19/25 09:00 04/20/25 08:40 Enoxaparin 40 Mg/0.4 Ml Syringe SUB-Q Not Given DAILY JULIO CESAR Gabapentin 100 mg 04/18/25 09:00 04/20/25 08:39 Gabapentin 100 Mg Capsule PO 100 mg TID JULIO CESAR Administration Glucagon 1 mg 04/17/25 13:01 Glucagon For Inj 1 Mg Vial IM PRN PRN Hypoglycemia Protocol Glucose 15 gm 04/17/25 13:01 Glucose Oral Gel 15 Gm Of Glucse In 37.5 Gm Tube PO PRN PRN Hypoglycemia Protocol Dextrose 1,000 mls @ 100 mls/hr 04/17/25 13:01 Dextrose 5% 1,000 Ml IVPB PRN PRN Hypoglycemia Protocol Metronidazole 500 mg in 100 mls @ 100 mls/hr 04/17/25 22:00 04/20/25 06:05 Flagyl 500 Mg/Iso Soln 100 Ml IVPB 100 mls/hr Q8HR JULIO CESAR Administration Cefepime HCl 2 gm in 50 mls @ 100 mls/hr 04/18/25 10:30 04/19/25 20:34 Maxipime 2 Gm/Ns 50 Ml IVPB 100 mls/hr Q12HR JULIO CESAR Administration Vancomycin HCl 1,250 mg in 250 mls @ 166.667 mls/hr 04/19/25 20:00 04/20/25 08:36 Vancomycin 1,250 Mg/Ns 250 Ml IVPB 166.67 mls/hr Q12H JULIO CESAR Administration Insulin Aspart 3 - 6 units 04/18/25 08:00 04/20/25 07:46 Insulin Aspart (*Bkc) 100 Units/Ml SUB-Q Not Given TIDWM [facility] Protocol Insulin Glargine 17 units 04/18/25 00:15 04/19/25 21:16 Insulin Glargine (*Bkc) 100 Units/Ml SUB-Q 17 units HS JULIO CESAR Administration Ondansetron HCl 4 mg 04/17/25 17:45 Ondansetron Inj 4 Mg/2 Ml Vial IV PUSH Q4H PRN Nausea And Vomiting Pantoprazole Sodium 40 mg 04/18/25 09:00 04/20/25 08:39 Pantoprazole Sodium Iv 40 Mg Vial IV PUSH 40 mg QAM JULIO CESAR Administration Radiology Results: ITS Impressions Chest X-Ray 04/17/25 12:56 IMPRESSION: No focal infiltrate or effusion. Chest/Abdomen/Pelvis CT 04/17/25 14:05 Impression: Questionable infectious/inflammatory colitis, especially the distal descending colon. Correlate clinically. Chronic pancreatitis. Foot X-Ray 04/17/25 23:03 IMPRESSION: Osteomyelitis of the base of the distal phalanx of the big toe with fracture. Clinical correlation advised. Sclerotic changes in the proximal phalanx of the fourth toe which may indicate osteomyelitis. Narrowing of the interphalangeal joint of the first toe.. Foot MRI 04/18/25 11:16 IMPRESSION: Transverse fracture the proximal portion of the distal phalanx of the great toe. Possible superimposed septic arthritis of the interphalangeal joint of the great toe with associated osteomyelitis of the proximal and distal phalanges. Correlate for posttraumatic joint effusion and bone contusions. Correlate clinically for signs/symptoms of infection. Labs Labs: Laboratory Results - last 24 hr 04/19/25 04/19/25 04/19/25 11:34 16:27 18:37 WBC RBC Hgb Hct MCV MCH MCHC RDW Plt Count MPV Immature Gran % (Auto) Neut % (Auto) Lymph % (Auto) [place] % (Auto) Eos % (Auto) Baso % (Auto) Lymph # (Auto) [place] # (Auto) Eos # (Auto) Baso # (Auto) Abs Immat Gran (auto) Absolute Neuts (auto) Absolute Nucleated RBC Nucleated RBC % Sodium Potassium Chloride Carbon Dioxide Anion Gap BUN Creatinine Estim Creat Clear Calc Estimated GFR Glucose POC Capillary Glucose 209 H 303 H Calcium Phosphorus Magnesium Total Bilirubin AST ALT Alkaline Phosphatase Total Protein Albumin Vancomycin Trough 11.5 04/19/25 04/20/25 04/20/25 21:05 05:41 07:38 WBC 6.0 RBC 3.40 L Hgb 10.3 L Hct 31.6 L MCV 92.9 MCH 30.3 MCHC 32.6 RDW 12.2 Plt Count 200 MPV 9.4 Immature Gran % (Auto) 0.2 Neut % (Auto) 51.4 Lymph % (Auto) 32.9 [place] % (Auto) 10.1 H Eos % (Auto) 4.7 H Baso % (Auto) 0.7 Lymph # (Auto) 1.98 [place] # (Auto) 0.6 Eos # (Auto) 0.3 Baso # (Auto) 0.0 Abs Immat Gran (auto) 0.01 Absolute Neuts (auto) 3.1 Absolute Nucleated RBC 0.000 Nucleated RBC % 0.0 Sodium 134 L Potassium 4.2 Chloride 105 Carbon Dioxide 24 Anion Gap 5 BUN 7 L Creatinine 0.91 Estim Creat Clear Calc 82 Estimated GFR > 60 Glucose 194 H POC Capillary Glucose 304 H 170 H Calcium 9.1 Phosphorus 2.8 Magnesium 1.6 Total Bilirubin 0.6 AST 27 ALT 16 Alkaline Phosphatase 72 Total Protein 7.0 Albumin 3.8 Vancomycin Trough Quality VTE Prophylaxis VTE prophylaxis: pharmacologic ordered
[2025-04-20] MEDS: CEFEPIME 2 GM/NS 50 ML 2 GM/50 ML BAG IVPB ×2 (10:28→20:47)
[2025-04-20] MEDS: INSULIN ASPART (*BKC) 100 UNITS/ML SUB-Q ×2 (11:34→16:33)
[2025-04-20 11:39] LABS: Glucose Point of Care 276 mg/dl (65-105)
[2025-04-20 14:00] VITALS: BP 135/94; PULSE 92; RESP 18; TEMP 36.4; O2SAT 100
[2025-04-20 16:34] LABS: Glucose Point of Care 224 mg/dl (65-105)
[2025-04-20] MEDS: ATORVASTATIN 40 MG TABLET PO (20:46)
[2025-04-20 20:47] LABS: Glucose Point of Care 417 mg/dl (65-105)
[2025-04-20 22:00] VITALS: BP 158/99; PULSE 91; RESP 18; TEMP 36.4; O2SAT 100
[2025-04-20] MEDS: INSULIN GLARGINE (*BKC) 100 UNITS/ML 17 UNITS SUB-Q (22:16)
[2025-04-20] MEDS: INSULIN ASPART (*BKC) 100 UNITS/ML 12 UNITS SUB-Q (23:45)
[2025-04-21 03:02] LABS: Glucose Point of Care 151 mg/dl (65-105)
[2025-04-21 04:50] LABS: Glucose Point of Care 119 mg/dl (65-105)
[2025-04-21] MEDS: metroNIDAZOLE 500 MG/ISO 100ML 500 MG/100 ML BAG 100 MG IVPB (05:59)
[2025-04-21 06:00] VITALS: BP 154/89; PULSE 88; RESP 18; TEMP 36.4; O2SAT 100
[2025-04-21 06:57] LABS: Basophils Absolute Auto 0.1 K/mm3 (0.0-0.1); Basophils Percent Auto 0.9 % (0.2-1.2); Eosinophils Absolute Auto 0.3 K/mm3 (0-0.3); Eosinophils Percent Auto 4.9 % (0-4.4); Hematocrit 32.5 % (42.0-52.0); Hemoglobin 10.5 g/dL (14.0-18.0); Immature Granulocyte Absolute 0.02 K/mm3 (0.00-0.031); Immature Granulocyte Percent A 0.3 % (0-0.5); Lymphocytes Absolute Auto 1.74 K/mm3 (0.9-3.2); Lymphocytes Percent Auto 29.6 % (18.3-44.2); Mean Corpuscular HGB Conc 32.3 g/dl (32-36); Mean Corpuscular Hemoglobin 29.8 pg (26-34); Mean Corpuscular Volume 92.3 fl (80-100); Monocytes Absolute Auto 0.6 K/mm3 (0.1-0.6); Monocytes Percent Auto 10.4 % (2.6-8.5); Neutrophils Absolute Auto 3.2 K/mm3 (1.3-6.7); Neutrophils Percent Auto 53.9 % (45.5-73.1); Platelet Count Result 180 k/mm3 (150-375); Red Blood Count 3.52 M/mm3 (4.6-6.20); Red Cell Distribution Width 12.2 % (11.5-14.5); White Blood Count 5.9 K/mm3 (4.5-10.0)
[2025-04-21 07:10] LABS: Vancomycin Trough 25.9 ug/mL (10.0-20.0)
[2025-04-21 07:26] LABS: Alanine Aminotransferase 17 U/L (6-50); Albumin Level 3.7 g/dL (3.5-5.1); Alkaline Phosphatase 67 U/L (38-126); Anion Gap 8 mmol/L (4-12); Aspartate Amino Transferase 27 U/L (17-59); Bilirubin,Total 0.5 mg/dL (0.2-1.3); Blood Urea Nitrogen 9 mg/dL (9-20); Calcium 8.9 mg/dL (8.4-10.2); Carbon Dioxide 19 mmol/L (22-30); Chloride 107 mmol/L (98-107); Estimated CRCL calculation 77 ml/min; Estimated Glomerular Filt Rate > 60; Glucose 231 mg/dL (65-110); Magnesium 1.6 mg/dL (1.6-2.3); Potassium 3.8 mmol/L (3.4-5.0); Sodium 134 mmol/L (137-145)
[2025-04-21] MEDS: INSULIN ASPART (*BKC) 100 UNITS/ML SUB-Q ×2 (08:03→11:52)
[2025-04-21] MEDS: amLODIPine BESYLATE 10 MG TABLET PO (08:04)
[2025-04-21] MEDS: carvediloL 25 MG TABLET PO (08:04)
[2025-04-21] MEDS: GABAPENTIN 100 MG CAPSULE PO ×2 (08:04→11:52)
[2025-04-21] MEDS: CEFEPIME 2 GM/NS 50 ML 2 GM/50 ML BAG IVPB (08:04)
[2025-04-21] MEDS: PANTOPRAZOLE SODIUM IV 40 MG VIAL IV PUSH (08:04)
[2025-04-21 08:11] LABS: Glucose Point of Care 226 mg/dl (65-105)
--- NOTE | 2025-04-21 11:30 | PM.PNORT ---
Progress Note: A&P Assessment and Plan (1) Toe pain, left: Onset Date: ~04/18/25 Code(s): M79.675 - Pain in left toe(s) Status: Acute Plan 45-year-old male with admission for DKA with left great toe swelling. The patient had an MRI that would suggest for either a fracture of the distal phalanx or possible osteomyelitis. Given the patient's physical exam as well as his history of walking miles and miles to and from work, I do believe that this is more than likely a fracture of the distal phalanx of his great toe as a result of tight shoe wear as he describes it to me. There is no evidence of drainage at this point and I would recommend treating this patient conservatively and follow up in about a week to see how he is doing. I do not believe that this is osteomyelitis given his history and his physical exam today. Subjective Subjective Date/Time Seen: 04/21/25 11:30 Principal diagnosis: Less left Great Toe Pain Exam Narrative: NO change in exam of Left Great Toe Objective Data Vital Signs Vital Signs: Vital Signs - 24 hr 04/20/25 14:00 04/20/25 20:00 04/20/25 22:00 Temperature 36.4 C L 36.4 C Pulse Rate 92 91 Respiratory Rate 18 18 Blood Pressure 135/94 H 158/99 H Pulse Oximetry 100 100 Oxygen Delivery Room Air 04/21/25 06:00 04/21/25 08:00 Temperature 36.4 C Pulse Rate 88 Respiratory Rate 18 Blood Pressure 154/89 H Pulse Oximetry 100 Oxygen Delivery Room Air Intake/Output Intake/Output: Intake & Output 04/18/25 04/19/25 04/20/25 04/21/25 23:59 23:59 23:59 23:59 Intake Total 4499 3060 3210 980 Output Total 1250 Balance 3249 3060 3210 980 Meds/Results Medications: Active Medications Generic Name Dose Route Start Last Admin Trade Name Freq PRN Reason Stop Dose Admin Acetaminophen 650 mg 04/17/25 17:45 04/17/25 21:34 Acetaminophen 325 Mg Tablet PO 650 mg Q4H PRN Administration Mild Pain (1-3) or Fever Amlodipine Besylate 10 mg 04/18/25 09:00 04/21/25 08:04 Amlodipine Besylate 10 Mg Tablet PO 10 mg DAILY JULIO CESAR Administration Atorvastatin Calcium 40 mg 05/29/25 21:00 04/20/25 20:46 Atorvastatin 40 Mg Tablet PO 40 mg HS JULIO CESAR Administration Carvedilol 25 mg 04/17/25 21:00 04/21/25 08:04 Carvedilol 25 Mg Tablet PO 25 mg Q12HR JULIO CESAR Administration Dextrose 12.5 gm 04/17/25 13:01 Dextrose 50% 25 Gm/50 Ml Syringe IV PUSH PRN PRN Hypoglycemia Protocol Enoxaparin Sodium 40 mg 04/19/25 09:00 04/21/25 10:03 Enoxaparin 40 Mg/0.4 Ml Syringe SUB-Q Not Given DAILY JULIO CESAR Gabapentin 100 mg 04/18/25 09:00 04/21/25 08:04 Gabapentin 100 Mg Capsule PO 100 mg TID JULIO CESAR Administration Glucagon 1 mg 04/17/25 13:01 Glucagon For Inj 1 Mg Vial IM PRN PRN Hypoglycemia Protocol Glucose 15 gm 04/17/25 13:01 Glucose Oral Gel 15 Gm Of Glucse In 37.5 Gm Tube PO PRN PRN Hypoglycemia Protocol Dextrose 1,000 mls @ 100 mls/hr 04/17/25 13:01 Dextrose 5% 1,000 Ml IVPB PRN PRN Hypoglycemia Protocol Metronidazole 500 mg in 100 mls @ 100 mls/hr 04/17/25 22:00 04/21/25 07:00 Flagyl 500 Mg/Iso Soln 100 Ml IVPB Infused Q8HR JULIO CESAR Infusion Cefepime HCl 2 gm in 50 mls @ 100 mls/hr 04/18/25 10:30 04/21/25 08:04 Maxipime 2 Gm/Ns 50 Ml IVPB 100 mls/hr Q12HR JULIO CESAR Administration Vancomycin HCl 1,250 mg in 250 mls @ 166.667 mls/hr 04/19/25 20:00 04/20/25 22:12 Vancomycin 1,250 Mg/Ns 250 Ml IVPB 166.67 mls/hr Q12H JULIO CESAR Administration Insulin Aspart 3 - 6 units 04/18/25 08:00 04/21/25 08:03 Insulin Aspart (*Bkc) 100 Units/Ml SUB-Q 3 units TIDWM JULIO CESAR Administration Protocol Insulin Aspart 2 - 4 units 04/21/25 21:00 Insulin Aspart (*Bkc) 100 Units/Ml SUB-Q HS JULIO CESAR Protocol Insulin Glargine 17 units 04/18/25 00:15 04/20/25 22:16 Insulin Glargine (*Bkc) 100 Units/Ml SUB-Q 17 units HS JULIO CESAR Administration Ondansetron HCl 4 mg 04/17/25 17:45 Ondansetron Inj 4 Mg/2 Ml Vial IV PUSH Q4H PRN Nausea And Vomiting Pantoprazole Sodium 40 mg 04/18/25 09:00 04/21/25 08:04 Pantoprazole Sodium Iv 40 Mg Vial IV PUSH 40 mg QAM JULIO CESAR Administration Radiology Results: ITS Impressions Chest X-Ray 04/17/25 12:56 IMPRESSION: No focal infiltrate or effusion. Chest/Abdomen/Pelvis CT 04/17/25 14:05 Impression: Questionable infectious/inflammatory colitis, especially the distal descending colon. Correlate clinically. Chronic pancreatitis. Foot X-Ray 04/17/25 23:03 IMPRESSION: Osteomyelitis of the base of the distal phalanx of the big toe with fracture. Clinical correlation advised. Sclerotic changes in the proximal phalanx of the fourth toe which may indicate osteomyelitis. Narrowing of the interphalangeal joint of the first toe.. Foot MRI 04/18/25 11:16 IMPRESSION: Transverse fracture the proximal portion of the distal phalanx of the great toe. Possible superimposed septic arthritis of the interphalangeal joint of the great toe with associated osteomyelitis of the proximal and distal phalanges. Correlate for posttraumatic joint effusion and bone contusions. Correlate clinically for signs/symptoms of infection. Labs Labs: Laboratory Results - last 24 hr 04/20/25 04/20/25 04/20/25 11:33 16:29 20:42 WBC RBC Hgb Hct MCV MCH MCHC RDW Plt Count MPV Immature Gran % (Auto) Neut % (Auto) Lymph % (Auto) [place] % (Auto) Eos % (Auto) Baso % (Auto) Lymph # (Auto) [place] # (Auto) Eos # (Auto) Baso # (Auto) Abs Immat Gran (auto) Absolute Neuts (auto) Absolute Nucleated RBC Nucleated RBC % Sodium Potassium Chloride Carbon Dioxide Anion Gap BUN Creatinine Estim Creat Clear Calc Estimated GFR Glucose POC Capillary Glucose 276 H 224 H 417 H Calcium Magnesium Total Bilirubin AST ALT Alkaline Phosphatase Total Protein Albumin Vancomycin Trough 04/21/25 04/21/25 04/21/25 02:58 04:46 06:42 WBC 5.9 RBC 3.52 L Hgb 10.5 L Hct 32.5 L MCV 92.3 MCH 29.8 MCHC 32.3 RDW 12.2 Plt Count 180 MPV 9.0 Immature Gran % (Auto) 0.3 Neut % (Auto) 53.9 Lymph % (Auto) 29.6 [place] % (Auto) 10.4 H Eos % (Auto) 4.9 H Baso % (Auto) 0.9 Lymph # (Auto) 1.74 [place] # (Auto) 0.6 Eos # (Auto) 0.3 Baso # (Auto) 0.1 Abs Immat Gran (auto) 0.02 Absolute Neuts (auto) 3.2 Absolute Nucleated RBC 0.000 Nucleated RBC % 0.0 Sodium 134 L Potassium 3.8 Chloride 107 Carbon Dioxide 19 L Anion Gap 8 BUN 9 Creatinine 0.97 Estim Creat Clear Calc 77 Estimated GFR > 60 Glucose 231 H POC Capillary Glucose 151 H 119 H Calcium 8.9 Magnesium 1.6 Total Bilirubin 0.5 AST 27 ALT 17 Alkaline Phosphatase 67 Total Protein 7.0 Albumin 3.7 Vancomycin Trough 25.9 H 04/21/25 07:19 WBC RBC Hgb Hct MCV MCH MCHC RDW Plt Count MPV Immature Gran % (Auto) Neut % (Auto) Lymph % (Auto) [place] % (Auto) Eos % (Auto) Baso % (Auto) Lymph # (Auto) [place] # (Auto) Eos # (Auto) Baso # (Auto) Abs Immat Gran (auto) Absolute Neuts (auto) Absolute Nucleated RBC Nucleated RBC % Sodium Potassium Chloride Carbon Dioxide Anion Gap BUN Creatinine Estim Creat Clear Calc Estimated GFR Glucose POC Capillary Glucose 226 H Calcium Magnesium Total Bilirubin AST ALT Alkaline Phosphatase Total Protein Albumin Vancomycin Trough
[2025-04-21 11:34] LABS: Glucose Point of Care 339 mg/dl (65-105)
--- NOTE | 2025-04-21 11:49 | PCDIET ---
Nutrition screen for low BMI. Pt reports he has lost a lot of weight over the last 20yrs, unsure of his usual weight or how much weight he has lost in the last year, states he has always been smaller. Reports a good appetite and intake, charted intake 100%, Glucerna shakes BID in place and pt is drinking, no questions regarding previous diet education. Encouraged pt to continue on protein shakes after discharge. No new nutrition recommendations at this time.
[2025-04-21 13:53] VITALS: BP 123/85; PULSE 65; RESP 20; TEMP 36.8; O2SAT 95
--- NOTE | 2025-04-21 14:59 | P.DS_ITS ---
DS: Admitting Diagnosis Discharge Date 04/21/25 Admitting Diagnosis Nausea, Vomiting. Hyperglycemia DS: Discharge Diagnosis Discharge Diagnosis (1) DKA (diabetic ketoacidosis): Qualifiers: Diabetes mellitus complication detail: without coma Diabetes mellitus type: type 1 Qualified Code(s): E10.10 - Type 1 diabetes mellitus with ketoacidosis without coma Code(s): E11.10 - Type 2 diabetes mellitus with ketoacidosis without coma Status: Acute (2) Toe pain, left: Onset Date: ~04/18/25 Code(s): M79.675 - Pain in left toe(s) Status: Acute DS: Summary Hospital Course Hospital Course: 45 y/o M with PMH of DM1, DKA and chronic pancreatitis Presents here with nausea, vomiting, diarrhea, and hyperglycemia. [facility] for further evaluation of nausea, vomiting, diarrhea, hyperglycemia, and abdominal pain. He reports he initially developed nausea and vomiting 2 days ago, however this was precipitated by general malaise, fevers, and a productive cough (scant, intermittent) for the past 1-2 weeks. Since onset of the symptoms his home glucose measurements have been up trending. He reports compliance with his diabetes regimen: Lantus 18 units subQ HS and has Lispro as a sliding scale. He currently follows with Gerardo BAUER (PCP) for his diabetes care. Patient also reported abdominal pain and diarrhea. He reports this has been ongoing for the past few days. He describes the abdominal pain as left lower quadrant, nonradiating, and is intermittent. Patient also is reporting swelling and pain to his first left toe. Has been ongoing for 1 week. No precipitating trauma. Initial VS at presentation: 98.4? F, HR 109, RR 18, 119/72, and 100% on RA. ED workup showed: WBC 11.9, hemoglobin 11.1, VBG showed a pH of 7.197, sodium 128, potassium 5.4, creatinine 2.17 and GFR 33, initial glucose 829, A1c 12.4%, phosphorus 6.4, magnesium 2.4, beta hydroxy 11.2. CXR showed no focal infiltrate or effusion. CT of the chest/abdomen/pelvis showed questionable infectious/inflammatory colitis especially the distal descending colon, and chronic pancreatitis. Patient was managed for DKA in the ICU with IVF adn insulin, DKA resolved and ROM resolved. Patient noted he had issues with his landlord that put him under stress that led to DKA. noted he has insulin supplies and will continue his regimen on return. Ortho was consulted for left big toe pain, MRI showed fracture with septic arthritis with possible osteo. Patient was started on Broad spectrum antibiotics. However ortho evaluated imaging and patient today and noted that osteo and septic arthritis were unlikely. Reckons this is mostly fracture and will follow up with Patient in the office. Discharged empirically on Augmentin and Doxycycline x 10 day F/u with PCP in 3-5 days, and Ortho as instructed. Time Spent with Patient Time attestation: Total time spent providing and/or coordinating discharge services: DS: Data Data Completed and Pending Labs on day of discharge: Labs from last 24 hours 04/21/25 04/21/25 04/21/25 11:28 07:19 06:42 WBC 5.9 RBC 3.52 L Hgb 10.5 L Hct 32.5 L MCV 92.3 MCH 29.8 MCHC 32.3 RDW 12.2 Plt Count 180 MPV 9.0 Immature Gran % (Auto) 0.3 Neut % (Auto) 53.9 Lymph % (Auto) 29.6 [place] % (Auto) 10.4 H Eos % (Auto) 4.9 H Baso % (Auto) 0.9 Lymph # (Auto) 1.74 [place] # (Auto) 0.6 Eos # (Auto) 0.3 Baso # (Auto) 0.1 Abs Immat Gran (auto) 0.02 Absolute Neuts (auto) 3.2 Absolute Nucleated RBC 0.000 Nucleated RBC % 0.0 Sodium 134 L Potassium 3.8 Chloride 107 Carbon Dioxide 19 L Anion Gap 8 BUN 9 Creatinine 0.97 Estim Creat Clear Calc 77 Estimated GFR > 60 Glucose 231 H POC Capillary Glucose 339 H 226 H Calcium 8.9 Magnesium 1.6 Total Bilirubin 0.5 AST 27 ALT 17 Alkaline Phosphatase 67 Total Protein 7.0 Albumin 3.7 Vancomycin Trough 25.9 H 04/21/25 04/21/25 04/20/25 04:46 02:58 20:42 WBC RBC Hgb Hct MCV MCH MCHC RDW Plt Count MPV Immature Gran % (Auto) Neut % (Auto) Lymph % (Auto) [place] % (Auto) Eos % (Auto) Baso % (Auto) Lymph # (Auto) [place] # (Auto) Eos # (Auto) Baso # (Auto) Abs Immat Gran (auto) Absolute Neuts (auto) Absolute Nucleated RBC Nucleated RBC % Sodium Potassium Chloride Carbon Dioxide Anion Gap BUN Creatinine Estim Creat Clear Calc Estimated GFR Glucose POC Capillary Glucose 119 H 151 H 417 H Calcium Magnesium Total Bilirubin AST ALT Alkaline Phosphatase Total Protein Albumin Vancomycin Trough 04/20/25 16:29 WBC RBC Hgb Hct MCV MCH MCHC RDW Plt Count MPV Immature Gran % (Auto) Neut % (Auto) Lymph % (Auto) [place] % (Auto) Eos % (Auto) Baso % (Auto) Lymph # (Auto) [place] # (Auto) Eos # (Auto) Baso # (Auto) Abs Immat Gran (auto) Absolute Neuts (auto) Absolute Nucleated RBC Nucleated RBC % Sodium Potassium Chloride Carbon Dioxide Anion Gap BUN Creatinine Estim Creat Clear Calc Estimated GFR Glucose POC Capillary Glucose 224 H Calcium Magnesium Total Bilirubin AST ALT Alkaline Phosphatase Total Protein Albumin Vancomycin Trough Preliminary micro results at discharge 04/17/25 13:24 Blood Culture - Preliminary Blood 04/17/25 13:25 Blood Culture - Preliminary Blood Discharge Plan Discharge Attending physician on discharge: Rohan López Consulting providers: Pineda Almonte; Abdoulaye Sen Discharging Clinician: Rohan López Anticipated Discharge Date/Time: 04/21/25 14:55 Patient Disposition: Home Activity: as tolerated Diet: as tolerated and diabetic Patient Instructions: Antibiotic Form, Basic Carbohydrate Counting (DC) Patient Language: [place] Stand Alone Forms: General Discharge Information Follow-up/Referrals: Abdoulaye Sen MD [Physician] - 1 Week Discharge Medications: New doxycycline hyclate 100 mg Tablet 100 mg PO Q12HR 10 Days Qty: 20 0RF amoxicillin-pot clavulanate 875-125 mg tablet 1 tablet PO Q12H 10 Days Qty: 20 0RF Continued amlodipine 10 mg tablet 10 mg PO DAILY carvedilol 25 mg tablet 25 mg PO BID famotidine 20 mg tablet 20 mg PO BID atorvastatin 40 mg tablet 40 mg PO HS gabapentin 100 mg capsule 100 mg PO TID insulin glargine [Lantus Solostar U-100 Insulin] 100 unit/mL (3 mL) insulin pen 18 unit SUBCUT HS insulin lispro [Humalog KwikPen Insulin] 100 unit/mL insulin pen 1 sliding scale dose SUBCUT TIDWM Patient Comments: patient states uses it as sliding scale Date of admission: 04/17/25 15:33 Primary Care Provider: Gerardo Stanley Admitting Provider: Rohan López Attending physician on admission: Rohan López Condition: Serious
--- NOTE | 2025-04-28 16:00 | PCCDE ---
04/28/[address] courtes DM educator follow up call at number listed: [phone]- Other recording stating thank you for calling [facility]...
== END 2025-04-21 15:59 | disposition home or self-care (01) | DRG 420 ==
LOC: ANHED 15:58 → ANHICU 16:00 → ANH3MEDSUR 04-18 13:12
PROVIDERS: Emergency Medicine; Internal Medicine; Student in an Organized Health Care Education/Training Program; Admitting Provider Internal Medicine; Emergency Provider Emergency Medicine; Visit Provider Internal Medicine
DX: E10.10 Type 1 diabetes mellitus with ketoacidosis without coma (principal); N17.9 Acute kidney failure, unspecified; K52.9 Noninfective gastroenteritis and colitis, unspecified; K86.1 Other chronic pancreatitis; F17.210 Nicotine dependence, cigarettes, uncomplicated; S92.912A Unspecified fracture of left toe(s), initial encounter for closed fracture; X50.9XXA Other and unspecified overexertion or strenuous movements or postures, initial encounter
CPT/HCPCS: 36415; 71045; 71250; 73620; 73718; 74176; 80048; 80053; 80202; 80307; 81001; 82010; 82077; 82803; 82948; 83036; 83690; 83735; 84100; 85025; 87040; 87637; 87641; 93005; 96361; 96365; 96367; 96375; 99285; A9270; J0692; J0696; J0780; J1200; J1650; J1815; J1836; J2405; J2470; J3370; J3480; J7030; J7120

== ENCOUNTER 2025-05-09 12:02 | Outpatient (CLI) | payer OTHER, SELFPAY ==
[2025-05-09 12:56] LABS: Hematocrit 32.8 % (42.0-52.0); Hemoglobin 10.9 g/dL (14.0-18.0); Mean Corpuscular HGB Conc 33.2 g/dl (32-36); Mean Corpuscular Hemoglobin 29.9 pg (26-34); Mean Corpuscular Volume 89.9 fl (80-100); Mean Platelet Volume 9.5 fl (7.4-10.4); Platelet Count Result 216 k/mm3 (150-375); Red Blood Count 3.65 M/mm3 (4.6-6.20); Red Cell Distribution Width 12.4 % (11.5-14.5); White Blood Count 7.3 K/mm3 (4.5-10.0)
[2025-05-09 13:09] LABS: Anion Gap 13 mmol/L (4-12); Blood Urea Nitrogen 31 mg/dL (9-20); CRP < 0.5 mg/dL (<1.0); Calcium 9.5 mg/dL (8.4-10.2); Carbon Dioxide 19 mmol/L (22-30); Chloride 101 mmol/L (98-107); Estimated Glomerular Filt Rate 42; Glucose 353 mg/dL (65-110); Potassium 4.8 mmol/L (3.4-5.0); Sodium 133 mmol/L (137-145)
[2025-05-09 13:26] LABS: Erythrocyte Sedimentation Rate 28 mm/hr (0-20)
== END 2025-05-09 12:03 | disposition home or self-care (01) ==
LOC: ANHLAB 12:06
PROVIDERS: Visit Provider Orthopaedic Surgery
DX: M79.672 Pain in left foot (principal)
CPT/HCPCS: 36415; 80048; 85027; 85652; 86140